=== PATIENT | male | born 1940 | race Caucasian/White ===

== ENCOUNTER 2017-04-27 17:01 | Inpatient (IN) | payer MEDICARE ==
[2017-04-27] MEDS ORDERED: Sodium Chloride 0.9% 1,000 ML IV STA (17:50)
--- NOTE | 2017-04-27 18:18 | ED PDOC ---
HPI: General Adult Time Seen by Provider: 04/27/17 17:36 Chief Complaint (Nursing): Weakness/Neurological Deficit Chief Complaint (Provider): Weakness History Per: Patient, Family () Onset/Duration Of Symptoms: Days, Other (months) Current Symptoms Are (Timing): Still Present Additional Complaint(s): 76 year old male with a past medical history of COPD (O2 at home) and HTN, who presents to the ED complaining of generalized weakness, decreased PO intake, and difficulty walking for several months. Patient's states patient is weak and hasn't been walking much. Also states patient's eating and drinking is severely reduced. Patient reports no pain, just weakness and lack of appetite. Denies chest pain, fevers, or shortness of breath. Confirms constipation. PMD: Dr. Orozco Past Medical History Reviewed: Historical Data, Nursing Documentation, Vital Signs Vital Signs: Last Vital Signs Temp 98 F 04/29/17 08:00 Pulse 80 04/29/17 08:00 Resp 18 04/29/17 08:00 BP 139/86 04/29/17 08:00 Pulse Ox 100 04/29/17 08:00 - Medical History PMH: CAD, Emphysema, HTN, Hypercholesterolemia Denies: Chronic Kidney Disease - Surgical History Surgical History: No Surg Hx - Family History Family History: States: Unknown Family Hx - Home Medications Home Medications: Ambulatory Orders Medication Instructions Recorded No Known Home Med 04/27/17 - Allergies Allergies/Adverse Reactions: Allergies Allergy/AdvReac Type Severity Reaction Status Date / Time No Known Allergies Allergy Verified 10/18/14 19:57 Review of Systems ROS Statement: Except As Marked, All Systems Reviewed And Found Negative Constitutional: Positive for: Weakness. Negative for: Fever Cardiovascular: Negative for: Chest Pain Respiratory: Negative for: Shortness of Breath Gastrointestinal: Positive for: Constipation Physical Exam - Reviewed Nursing Documentation Reviewed: Yes Vital Signs Reviewed: Yes - Physical Exam Appears: Positive for: Non-toxic, No Acute Distress (appears cachectic, frail) Head Exam: Positive for: ATRAUMATIC, NORMAL INSPECTION, NORMOCEPHALIC Skin: Positive for: Normal Color, Warm, Dry. Negative for: Rash Eye Exam: Positive for: EOMI, Normal appearance, PERRL Neck: Positive for: Normal, Painless ROM, Supple Cardiovascular/Chest: Positive for: Regular Rate, Rhythm. Negative for: Murmur Respiratory: Positive for: Normal Breath Sounds. Negative for: Respiratory Distress Gastrointestinal/Abdominal: Positive for: Normal Exam, Bowel Sounds, Soft. Negative for: Tenderness Back: Positive for: Normal Inspection. Negative for: L CVA Tenderness, R CVA Tenderness, Vertebral Tenderness Extremity: Positive for: Normal ROM. Negative for: Pedal Edema, Deformity Neurologic/Psych: Positive for: Alert, Oriented (x3). Negative for: Motor/ Sensory Deficits - Laboratory Results Result Diagrams: 04/27/17 18:58 04/29/17 05:24 - ECG O2 Sat by Pulse Oximetry: 99 (RA) Pulse Ox Interpretation: Normal - Radiology X-Ray: Interpreted by Me, Viewed By Me X-Ray Interpretation: COPD Medical Decision Making Medical Decision Making: Time: 17:49 Initial Impression: Generalized weakness and decreased PO intake. Differential diagnoses include, but are not limited to acute kidney failure, UTI, dementia, and generalized deconditioning. Initial Plan: --CT Head w/o contrast --EKG --Alcohol serum --Labs --Troponin I --CPK --ED Urine dipstick --CBC w/ differential --CXR --Sodium Chloride 0.9% 125 mls/hr --Reevaluation Time: 18:42 CT HEAD FINDINGS: HEMORRHAGE: No intracranial hemorrhage. BRAIN: Diffuse atrophy with prominence of the ventricles and sulci noted. No mass or edema. Mild scattered white matter hypodensities, which are nonspecific, but often seen with chronic microvascular ischemic disease. Please note that MRI with diffusion imaging is more sensitive in the detection of acute ischemic event. VENTRICLES: No hydrocephalus. CALVARIUM: Unremarkable. PARANASAL SINUSES: Unremarkable as visualized. No significant inflammatory changes. MASTOID AIR CELLS: Unremarkable as visualized. No inflammatory changes. OTHER FINDINGS: None. IMPRESSION: Generalized atrophy. Nonspecific white matter changes. Time: 19:00 Patient signed over to Dr. Rossi pending labs and urine. Scribe Attestation: Documented by Aman Martinez, acting as a scribe for Vicky Barajas MD. Provider Scribe Attestation: All medical record entries made by the Scribe were at my direction and personally dictated by me. I have reviewed the chart and agree that the record accurately reflects my personal performance of the history, physical exam, medical decision making, and the department course for this patient. I have also personally directed, reviewed, and agree with the discharge instructions and disposition. Disposition - Clinical Impression Clinical Impression: Dehydration, Cachexia - Patient ED Disposition Is Patient to be Admitted: Transfer of Care Counseled Patient/Family Regarding: Studies Performed, Diagnosis - Disposition Disposition: Transfer of Care Disposition Time: 19:00 Condition: FAIR Patient Signed Over To: Preet Rossi Handoff Comments: pending labs and urine
--- NOTE | 2017-04-27 18:43 | CT ---
PROCEDURE: CT HEAD WITHOUT CONTRAST. HISTORY: confusion weakness COMPARISON: None available. TECHNIQUE: Axial computed tomography images were obtained through the head/brain without intravenous contrast. Radiation dose: Total exam DLP = 1134.62 mGy-cm. This CT exam was performed using one or more of the following dose reduction techniques: Automated exposure control, adjustment of the mA and/or kV according to patient size, and/or use of iterative reconstruction technique. FINDINGS: HEMORRHAGE: No intracranial hemorrhage. BRAIN: Diffuse atrophy with prominence of the ventricles and sulci noted. No mass effect or edema. Mild scattered white matter hypodensities, which are nonspecific, but often seen with chronic microvascular ischemic disease. Please note that MRI with diffusion imaging is more sensitive in the detection of acute ischemic event. VENTRICLES: No hydrocephalus. CALVARIUM: Unremarkable. PARANASAL SINUSES: Unremarkable as visualized. No significant inflammatory changes. MASTOID AIR CELLS: Unremarkable as visualized. No inflammatory changes. OTHER FINDINGS: None. IMPRESSION: Generalized atrophy. Nonspecific white matter changes.
[2017-04-27 19:03] LABS: BASO # 0.1 K/uL (0.0-0.2); BASO % 0.9 % (0.0-2.0); EOS # 0.1 K/uL (0.0-0.7); HEMOGLOBIN 14.1 g/dL (12.0-18.0); LYMPH # 1.2 K/uL (1.0-4.3); LYMPH % 17.4 % (20.0-40.0); MEAN CELL VOLUME 97.1 fl (80.0-94.0); MEAN CORPUSCULAR HEMOGLOBIN 32.3 pg (27.0-31.0); MEAN CORPUSCULAR HGB CONC 33.2 g/dL (33.0-37.0); MEAN PLATELET VOLUME 7.7 fl (7.2-11.7); MONO # 0.5 K/uL (0.0-0.8); MONO % 6.8 % (0.0-10.0); NEUT # 4.8 K/uL (1.8-7.0); NEUT % 72.9 % (50.0-75.0); RBC 4.36 Mil/uL (4.40-5.90); RED CELL DISTRIBUTION WIDTH 14.8 % (11.5-14.5); WHITE BLOOD COUNT 6.6 K/uL (4.8-10.8)
--- NOTE | 2017-04-27 19:21 | ED PDOC ---
- Laboratory Results Result Diagrams: 04/27/17 18:58 04/27/17 18:58 - ECG O2 Sat by Pulse Oximetry: 99 (RA) Medical Decision Making Medical Decision Making: Time: 19:00 Patient signed over to me by pending urine and labs. Time: 20:00 Labs reviewed and no clinically significant abnormalities were found. Case discussed with Dr. Perez, resident air cargo ground operations supervisor, for hospitalization of patient due to cachexia and dehydration. Scribe Attestation: Documented by Aman Martinez, acting as a scribe for Preet Rossi MD. Provider Scribe Attestation: All medical record entries made by the Scribe were at my direction and personally dictated by me. I have reviewed the chart and agree that the record accurately reflects my personal performance of the history, physical exam, medical decision making, and the department course for this patient. I have also personally directed, reviewed, and agree with the discharge instructions and disposition. Disposition - Clinical Impression Clinical Impression: Dehydration, Cachexia - POA Present On Arrival: None - Disposition Disposition: Hospitalized as Observation Patient Disposition Time: 20:00 Condition: FAIR
[2017-04-27 19:22] LABS: ALB/GLOB RATIO 1.2 (1.0-2.1); ALT/SGPT 26 U/L (21-72); AST/SGOT 37 U/L (17-59); BLOOD UREA NITROGEN 20 mg/dl (9-20); CALCIUM 10.1 mg/dL (8.4-10.2); GFR AFRICAN-AMERICAN > 60; GFR NON-AFRICAN AMERICAN > 60
[2017-04-27] MEDS ORDERED: Sod Polystyrene Sulf 15 gm/60 ml Susp PO ONE (21:12)
[2017-04-27] MEDS ORDERED: Albuterol-Ipratrop 3 mg / 0.5 (3 ml) UD INH PRN (21:29)
--- NOTE | 2017-04-27 21:40 | CP.PCM.HP ---
<Renay Pace - Last Filed: 04/28/17 00:00> History of Present Illness - History of Present Illness History of Present Illness: 76 YO M w/ PMH of COPD on home oxygen, HTN, baseline dementia is brought in to the ER by his family for generalized weakness and decreased PO intake. Family states all he eats is scrambled eggs. He has lost a significant amount of weight in the past year. Patients daughter states the patient lost 60-70 pounds over the last year. - Patients family has noticed a decline in the patients memory and deconditioning of his overall health over the last year. He has two recent falls which were about a week ago, which were not witnessed, but he did not hit his head or loose consciousness. Patients gait has become more shuffled within the last year. - Patient has not gone to PMD , Dr. Orozco's clinic in 7 years and has not followed up with Manager Field Services Dr. Man in one year. - Denies Fever, chills, cough , hemoptysis, night sweats. PMH: HTN, HLD, COPD PSH: None SH: 80 Pack year smoking history. Smoked 2 packs per day for 40 years, however quit smoking in 2008. Patient lives with . Meds: No meds over last year. Pharmacy [facility]: 1 year ago patient was taking Elipta 62.5/25 and lisinopril 5mg, Ventolin inhaler Allergies: None Full Code Next of kin is Present on Admission - Present on Admission Any Indicators Present on Admission: No Review of Systems - Review of Systems All systems: reviewed and no additional remarkable complaints except Past Patient History - Past Social History Smoking Status: Former Smoker - CARDIAC Hx Hypercholesterolemia: Yes Hx Hypertension: Yes - PULMONARY Hx Emphysema: Yes - NEUROLOGICAL Hx Neurological Disorder: No - HEENT Hx HEENT Problems: No - RENAL Hx Chronic Kidney Disease: No - ENDOCRINE/METABOLIC Hx Endocrine Disorders: No - HEMATOLOGICAL/ONCOLOGICAL Hx Blood Disorders: No - INTEGUMENTARY Hx Dermatological Problems: No - MUSCULOSKELETAL/RHEUMATOLOGICAL Hx Musculoskeletal Disorders: No - GASTROINTESTINAL Hx Gastrointestinal Disorders: No - GENITOURINARY/GYNECOLOGICAL Hx Genitourinary Disorders: No - PSYCHIATRIC Hx Psychophysiologic Disorder: No Hx Substance Use: No - SURGICAL HISTORY Hx Surgeries: Yes - ANESTHESIA Hx Anesthesia: Yes Hx Anesthesia Reactions: No Meds Allergies/Adverse Reactions: Allergies Allergy/AdvReac Type Severity Reaction Status Date / Time No Known Allergies Allergy Verified 10/18/14 19:57 Physical Exam - Constitutional Appears: Cachectic - Head Exam Head Exam: NORMAL INSPECTION - Eye Exam Eye Exam: Normal appearance - ENT Exam ENT Exam: Mucous Membranes Dry - Neck Exam Neck exam: Positive for: Normal Inspection - Respiratory Exam Respiratory Exam: Decreased Breath Sounds, NORMAL BREATHING PATTERN. absent: Rhonchi, Wheezes - Cardiovascular Exam Cardiovascular Exam: REGULAR RHYTHM, +S1, +S2 - GI/Abdominal Exam GI & Abdominal Exam: Normal Bowel Sounds, Soft. absent: Tenderness - Extremities Exam Extremities exam: Positive for: normal inspection. Negative for: calf tenderness - Neurological Exam Neurological exam: Alert, CN II-XII Intact Additional comments: AAOx2 shuffling gait noted Motor and sensory grossly intact DTR: +2 B/L - Skin Skin Exam: Normal Color, Warm Results - Vital Signs Recent Vital Signs: Last Vital Signs Temp 97.6 F 04/27/17 17:04 Pulse 73 04/27/17 17:04 Resp 20 04/27/17 17:04 BP 157/81 H 04/27/17 17:04 Pulse Ox 99 04/27/17 20:12 - Labs Result Diagrams: 04/27/17 18:58 04/27/17 18:58 Labs: Laboratory Results - last 24 hr 04/27/17 04/27/17 18:58 18:58 WBC 6.6 RBC 4.36 L Hgb 14.1 Hct 42.3 MCV 97.1 H MCH 32.3 H MCHC 33.2 RDW 14.8 H Plt Count 322 MPV 7.7 Neut % (Auto) 72.9 Lymph % (Auto) 17.4 L [place] % (Auto) 6.8 Eos % (Auto) 2.0 Baso % (Auto) 0.9 Neut # (Auto) 4.8 Lymph # (Auto) 1.2 [place] # (Auto) 0.5 Eos # (Auto) 0.1 Baso # (Auto) 0.1 Sodium 143 Potassium 5.6 H Chloride 100 Carbon Dioxide 32 H Anion Gap 17 BUN 20 Creatinine 0.8 Est GFR ( Amer) > 60 Est GFR (Non-Af Amer) > 60 Random Glucose 102 Calcium 10.1 Total Bilirubin 0.7 AST 37 ALT 26 Alkaline Phosphatase 80 Total Creatine Kinase 48 L Troponin I 0.0130 Total Protein 7.3 Albumin 4.0 Globulin 3.3 Albumin/Globulin Ratio 1.2 Alcohol, Quantitative < 10 Assessment & Plan - Assessment and Plan (Free Text) Assessment: 76 YO M w/ h/o HTN, HLD, COPD admitted for deconditioning and dehydration 1) Dehydration - BUN: 20, Creatinine: .8. Dry mucus membrane - C/W IV fluids 2) Deconditioning - Swallow eval - BMI: 17.2 - PT/OT 3) COPD - C/W nasal canula - Duo neb Q6 PRN 4.) HTN - Hold meds for now 5) Baseline dementia most likely secondary to microvascular changes - F/U with Folate, B12, TSH - Consider MRI 6) H/O smoking - 80 Pack year smoking history - 70 pound unintentional weight loss. BMI of 17.2 - Consider chest CT 7) DVT prophylaxis - SCD for now <Fred Orozco - Last Filed: 04/29/17 07:05> Results - Vital Signs Recent Vital Signs: Last Vital Signs Temp 98.9 F 04/29/17 05:30 Pulse 68 04/29/17 05:30 Resp 16 04/29/17 05:30 BP 130/63 04/29/17 05:30 Pulse Ox 99 04/29/17 05:30 - Labs Result Diagrams: 04/27/17 18:58 04/29/17 05:24 Labs: Laboratory Results - last 24 hr 04/28/17 04/28/17 04/28/17 05:00 05:00 11:06 Sodium Potassium Chloride Carbon Dioxide Anion Gap BUN Creatinine Est GFR ( Amer) Est GFR (Non-Af Amer) Random Glucose Hemoglobin A1c 5.7 Calcium Prostate Specific Ag 2.79 Folate 14.5 04/29/17 05:24 Sodium 141 Potassium 4.3 Chloride 99 Carbon Dioxide 35 H Anion Gap 11 BUN 16 Creatinine 0.9 Est GFR ( Amer) > 60 Est GFR (Non-Af Amer) > 60 Random Glucose 84 Hemoglobin A1c Calcium 9.2 Prostate Specific Ag Folate Attending/Attestation - Attestation I have personally seen and examined this patient.: Yes I have fully participated in the care of the patient.: Yes I have reviewed all pertinent clinical information: Yes
[2017-04-27] MEDS ORDERED: Sod Polystyrene Sulf 15 gm/60 ml Susp ONE (23:27)
[2017-04-28] MEDS ORDERED: Sodium Chloride 0.9% 1,000 ML IV SCH (02:30)
[2017-04-28 06:13] LABS: LDL CHOLESTEROL 70 mg/dL (0-129)
[2017-04-28 06:17] LABS: T4 6.75 ug/dl (5.5-11.0)
[2017-04-28 06:31] LABS: T3 0.878 nmol/L (1.49-2.60)
[2017-04-28 06:34] LABS: ALB/GLOB RATIO 1.2 (1.0-2.1); ALBUMIN 3.2 g/dL (3.5-5.0); ALT/SGPT 27 U/L (21-72); AST/SGOT 22 U/L (17-59); BLOOD UREA NITROGEN 16 mg/dl (9-20); CALCIUM 8.9 mg/dL (8.4-10.2); GFR AFRICAN-AMERICAN > 60; GFR NON-AFRICAN AMERICAN > 60; HDL CHOLESTEROL 46 MG/DL (30-70)
--- NOTE | 2017-04-28 09:19 | CP.PCM.PN ---
<Josie Galindo - Last Filed: 04/28/17 15:51> Subjective - Date & Time of Evaluation Date of Evaluation: 04/28/17 Time of Evaluation: 07:25 - Subjective Subjective: Pt seen and evaluated at bedside this morning. States he feels well but that he does not know why he is here. Objective - Vital Signs/Intake and Output Vital Signs (last 24 hours): Temp Pulse Resp BP Pulse Ox 97.5 F L 60 18 128/66 99 04/28/17 08:00 04/28/17 08:00 04/28/17 08:00 04/28/17 08:00 04/28/17 08:00 - Medications Medications: Current Medications Albuterol/Ipratropium (Duoneb 3 Mg/0.5 Mg (3 Ml) Ud) 3 ml INH RQ6 PRN PRN Reason: Shortness of Breath Heparin Sodium (Porcine) (Heparin) 5,000 units SC Q12 NORBERTO PRN Reason: Protocol Sodium Chloride (Sodium Chloride 0.9%) 1,000 mls @ 100 mls/hr IV .Q10H NORBERTO Stop: 04/29/17 02:22 Last Admin: 04/28/17 02:36 Dose: 100 mls/hr - Labs Labs: 04/27/17 18:58 04/28/17 05:00 - Constitutional Appears: Non-toxic, Cachectic - Head Exam Head Exam: ATRAUMATIC - Eye Exam Eye Exam: Normal appearance - Respiratory Exam Respiratory Exam: Clear to Ausculation Bilateral, NORMAL BREATHING PATTERN. absent: Chest Wall Tenderness, Rales, Wheezes, Respiratory Distress - Cardiovascular Exam Cardiovascular Exam: REGULAR RHYTHM, +S1, +S2 - GI/Abdominal Exam GI & Abdominal Exam: Soft, Normal Bowel Sounds. absent: Tenderness - Back Exam Back Exam: NORMAL INSPECTION - Neurological Exam Neurological Exam: Alert, Awake - Skin Skin Exam: Normal Color, Warm Assessment and Plan - Assessment and Plan (Free Text) Assessment: 76 yo male with PMHx HTN, HLD, COPD who is admitted for deconditioning and dehydration, reported significant weight loss. Plan: #) Dehydration - On admission, BUN 20, Cr 0.8 - Received 1L fluid in ED - Today BUN 16, Cr 0.8 - 1L NS @ 100 mls/hr until diet order as per swallow eval recommendation #) Deconditioning - Swallow eval today - modified dysphagia diet: finely chopped and thin liquids - PT eval: recommended TCU for 2 weeks, therapy 3-5x a week. #) Underweight - BMI 17.2 - Repair Operator consult - Significant weight loss 60-70 lbs in past year - PSA pending #) History of smoking - 80 pack year smoking hx - Significant weight loss 60-70 lbs in past year - Low dose Chest CT - Pulmonology consult Dr. Man #) Baseline dementia, most likely secondary to miscovascular changes - Folate pending - B12 395, wnl - TSH 0.65, wnl - Psychiatry consult, Dr. Ritter - Social work referral #) COPD - Duoneb Q6 hrs PRN #) History of HTN - Normotensive without medications - Monitor BP #) DVT prophylaxis - Heparin 5000u SC Q12 <Dwaine Davis - Last Filed: 05/02/17 06:59> Objective - Vital Signs/Intake and Output Vital Signs (last 24 hours): Temp Pulse Resp BP Pulse Ox 98.9 F 54 L 16 142/65 95 05/02/17 06:09 05/02/17 06:09 05/02/17 06:09 05/02/17 06:09 05/02/17 06:09 - Medications Medications: Current Medications Albuterol Sulfate (Albuterol 0.083% Inhal Susanna (2.5 Mg/3 Ml) Ud) 2.5 mg INH RQ6 PRN PRN Reason: Shortness of Breath Docusate Sodium (Colace) 100 mg PO BID [facility] Last Admin: 05/01/17 18:20 Dose: 100 mg Heparin Sodium (Porcine) (Heparin) 5,000 units SC Q12 NORBERTO PRN Reason: Protocol Last Admin: 05/01/17 22:11 Dose: 5,000 units Prednisone (Prednisone Tab) 20 mg PO DAILY [facility] Last Admin: 05/01/17 13:29 Dose: 20 mg Tiotropium [place] (Spiriva) 18 mcg INH DAILY [facility] Last Admin: 05/01/17 09:09 Dose: 18 mcg - Labs Labs: 04/27/17 18:58 04/29/17 05:24 Attending/Attestation - Attestation I have personally seen and examined this patient.: Yes I have fully participated in the care of the patient.: Yes I have reviewed all pertinent clinical information, including history, physical exam and plan: Yes
--- NOTE | 2017-04-28 10:18 | RAD ---
PROCEDURE: CHEST RADIOGRAPH, 1 VIEW HISTORY: weakness COMPARISON: 10/10/2008 FINDINGS: LUNGS: Pulmonary hyperinflation with flattened diaphragm. Questionable opacity in left apex no abnormal opacity elsewhere. . PLEURA: Minimal blunting of both costophrenic angles may reflect small pleural effusions or chronic pleural thickening. No pneumothorax. CARDIOVASCULAR: Normal. OSSEOUS STRUCTURES: No significant abnormalities. VISUALIZED UPPER ABDOMEN: Normal. OTHER FINDINGS: None. IMPRESSION: Pulmonary hyperinflation. Possible emphysema. Questionable opacity in left apex. Follow-up advised to exclude pneumonia. Possible small bilateral pleural effusion versus chronic pleural thickening.
--- NOTE | 2017-04-28 10:58 | CP.PCM.CON ---
History of Present Illness - History of Present Illness History of Present Illness: Psychiatry consult CC: "I don't know why I'm here." HPI: 76 YO M w/ PMH of COPD on home oxygen, HTN, baseline dementia is brought in to the ER by his family for generalized weakness and decreased PO intake. He has lost a significant amount of weight in the past year. Patients daughter states the patient lost 60-70 pounds over the last year. Patient is unable to state why is in the hospital. Patient and family deny depression/anxiety/AH/VH/ paranoia/delusions. The report patient has had worsening memory, but is calm at home and does not have any behavioral disturances. They do not believe he needs psychiatric admission. PMH: HTN, HLD, COPD PSH: None SH: 80 Pack year smoking history. Smoked 2 packs per day for 40 years, however quit smoking in 2008. Patient lives with . Meds: No meds over last year. Pharmacy [facility]: 1 year ago patient was taking Elipta 62.5/25 and lisinopril 5mg, Ventolin inhaler Allergies: None MSE: A + O x 3 (able to read date off of board), calm, cooperative, full range of affect, tells jokes, thought process- coherent, no AH/VH/SI/HI, poor insight/ judgment due to cognitive impairment. Impression: 76 yo male w/ worsening dementia. Recommendation: -No acute inpatient psychiatric admission indicated at this time -Recommend Psychology consult for neurocognitive evaluation to determine severity of dementia -Patient may benefit from starting Aricept and/or Namenda and would benefit from outpatient medical follow-up -No 1:1 indicated for psychiatric reasons -Dietitian referral for significant weight loss Past Patient History - Past Medical History & Family History Past Medical History?: Yes - Past Social History Smoking Status: Former Smoker - CARDIAC Hx Cardiac Disorders: Yes Hx Hypercholesterolemia: Yes Hx Hypertension: Yes - PULMONARY Hx Respiratory Disorders: Yes Hx Chronic Obstructive Pulmonary Disease (COPD): Yes Hx Emphysema: Yes - NEUROLOGICAL Hx Neurological Disorder: Yes Hx Dementia: Yes - HEENT Hx HEENT Problems: No - RENAL Hx Chronic Kidney Disease: No - ENDOCRINE/METABOLIC Hx Endocrine Disorders: No - HEMATOLOGICAL/ONCOLOGICAL Hx Blood Disorders: No Hx AIDS: No Hx Human Immunodeficiency Virus (HIV): No - INTEGUMENTARY Hx Dermatological Problems: No - MUSCULOSKELETAL/RHEUMATOLOGICAL Hx Musculoskeletal Disorders: No Hx Falls: Yes (recurrent falls) - GASTROINTESTINAL Hx Gastrointestinal Disorders: No - GENITOURINARY/GYNECOLOGICAL Hx Genitourinary Disorders: No - PSYCHIATRIC Hx Psychophysiologic Disorder: No Hx Substance Use: No - SURGICAL HISTORY Hx Surgeries: Yes - ANESTHESIA Hx Anesthesia: Yes Hx Anesthesia Reactions: No Meds Allergies/Adverse Reactions: Allergies Allergy/AdvReac Type Severity Reaction Status Date / Time No Known Allergies Allergy Verified 10/18/14 19:57 - Medications Medications: Current Medications Albuterol/Ipratropium (Duoneb 3 Mg/0.5 Mg (3 Ml) Ud) 3 ml INH RQ6 PRN PRN Reason: Shortness of Breath Heparin Sodium (Porcine) (Heparin) 5,000 units SC Q12 NORBERTO PRN Reason: Protocol Last Admin: 04/28/17 09:32 Dose: 5,000 units Sodium Chloride (Sodium Chloride 0.9%) 1,000 mls @ 100 mls/hr IV .Q10H NORBERTO Stop: 04/29/17 02:22 Last Admin: 04/28/17 02:36 Dose: 100 mls/hr Results - Vital Signs Recent Vital Signs: Last Vital Signs Temp 97.5 F L 04/28/17 08:00 Pulse 60 04/28/17 08:00 Resp 18 04/28/17 08:00 BP 128/66 04/28/17 08:00 Pulse Ox 99 04/28/17 08:00 - Labs Result Diagrams: 04/27/17 18:58 04/28/17 05:00 Labs: Laboratory Results - last 24 hr 04/27/17 04/27/17 04/27/17 05:00 18:58 18:58 WBC 6.6 RBC 4.36 L Hgb 14.1 Hct 42.3 MCV 97.1 H MCH 32.3 H MCHC 33.2 RDW 14.8 H Plt Count 322 MPV 7.7 Neut % (Auto) 72.9 Lymph % (Auto) 17.4 L [place] % (Auto) 6.8 Eos % (Auto) 2.0 Baso % (Auto) 0.9 Neut # (Auto) 4.8 Lymph # (Auto) 1.2 [place] # (Auto) 0.5 Eos # (Auto) 0.1 Baso # (Auto) 0.1 Sodium 143 Potassium 5.6 H Chloride 100 Carbon Dioxide 32 H Anion Gap 17 BUN 20 Creatinine 0.8 Est GFR ( Amer) > 60 Est GFR (Non-Af Amer) > 60 Random Glucose 102 Calcium 10.1 Total Bilirubin 0.7 AST 37 ALT 26 Alkaline Phosphatase 80 Total Creatine Kinase 48 L Troponin I 0.0130 Total Protein 7.3 Albumin 4.0 Globulin 3.3 Albumin/Globulin Ratio 1.2 Triglycerides Cholesterol LDL Cholesterol Direct HDL Cholesterol Vitamin B12 395 Thyroxine (T4) Total T3 TSH 3rd Generation Alcohol, Quantitative < 10 04/28/17 05:00 WBC RBC Hgb Hct MCV MCH MCHC RDW Plt Count MPV Neut % (Auto) Lymph % (Auto) [place] % (Auto) Eos % (Auto) Baso % (Auto) Neut # (Auto) Lymph # (Auto) [place] # (Auto) Eos # (Auto) Baso # (Auto) Sodium 145 Potassium 3.9 Chloride 104 Carbon Dioxide 29 Anion Gap 16 BUN 16 Creatinine 0.8 Est GFR ( Amer) > 60 Est GFR (Non-Af Amer) > 60 Random Glucose 86 Calcium 8.9 Total Bilirubin 0.4 AST 22 ALT 27 Alkaline Phosphatase 57 Total Creatine Kinase Troponin I Total Protein 5.9 L Albumin 3.2 L Globulin 2.7 Albumin/Globulin Ratio 1.2 Triglycerides 49 Cholesterol 131 LDL Cholesterol Direct 70 HDL Cholesterol 46 Vitamin B12 Thyroxine (T4) 6.75 Total T3 0.878 L TSH 3rd Generation 0.65 Alcohol, Quantitative
[2017-04-28 12:03] LABS: FOLATE 14.5 ng/mL
--- NOTE | 2017-04-28 14:45 | CT ---
PROCEDURE: CT Chest without contrast HISTORY: weight loss, smoking hx COMPARISON: None. TECHNIQUE: Contiguous axial images were obtained through the chest without intravenous contrast enhancement. Sagittal and coronal reconstructions were performed. Radiation dose (DLP): 241.45 mGy-cm. This CT exam was performed using one or more of the following dose reduction techniques: Automated exposure control, adjustment of the mA and/or kV according to patient size, and/or use of iterative reconstruction technique. FINDINGS: LUNGS: Extensive diffuse centrilobular pulmonary emphysema. No infiltrate. No pulmonary mass. No bullous change. Marked pulmonary hyperinflation. MEDIASTINUM: Unremarkable thoracic aorta. No aneurysm. Normal sized heart. Main pulmonary artery unremarkable. No vascular congestion. No lymphadenopathy. PLEURA: No pleural fluid. No pneumothorax. BONES: No fracture. No destructive lesion. UPPER ABDOMEN: Grossly unremarkable. OTHER FINDINGS: None. IMPRESSION: Extensive centrilobular pulmonary emphysema. No evidence of pulmonary neoplasm. Otherwise unremarkable examination.
[2017-04-29 06:42] LABS: BLOOD UREA NITROGEN 16 mg/dl (9-20); CALCIUM 9.2 mg/dL (8.4-10.2); GFR AFRICAN-AMERICAN > 60; GFR NON-AFRICAN AMERICAN > 60
--- NOTE | 2017-04-29 10:05 | CP.PCM.CON ---
History of Present Illness - History of Present Illness History of Present Illness: This 76-year-old male who is a former heavy cigarette smoker presented to the emergency department with generalized weakness and reduced oral intake. He is known to suffer from chronic obstructive pulmonary disease and had been followed as an outpatient, but had not returned to the office for over the last year. As per the medical record there is a noticeable decline in his mental ability and he remains essentially within the home and in bed. He has had some recent falls while in the home. He is on oxygen at home because of chronic hypoxemia. Review of his CT scan at this time shows severely advanced emphysematous configuration of the chest with diffuse bullous emphysematous changes. Low dose, screening CT thorax was performed on 06/22/16 and showed extensive centrilobular emphysema in both lungs with increased reticular markings in the lung bases more so left than right. No suspicious pulmonary nodules or mass was seen. Past Patient History - Past Medical History & Family History Past Medical History?: Yes - Past Social History Smoking Status: Former Smoker (1.5 packs per day for greater than 50 years.) Chewing Tobacco Use: No Cigar Use: No Alcohol: Social Drugs: Denies Home Situation {Lives}: With Family - CARDIAC Hx Heart Attack: Yes (1999) Hx Hypercholesterolemia: Yes Hx Hypertension: Yes - PULMONARY Hx Chronic Obstructive Pulmonary Disease (COPD): Yes Hx Emphysema: Yes - NEUROLOGICAL Hx Dementia: Yes - HEENT Hx HEENT Problems: No - RENAL Hx Chronic Kidney Disease: No - ENDOCRINE/METABOLIC Hx Endocrine Disorders: No - HEMATOLOGICAL/ONCOLOGICAL Hx Blood Disorders: No Hx Human Immunodeficiency Virus (HIV): No - INTEGUMENTARY Hx Dermatological Problems: No - MUSCULOSKELETAL/RHEUMATOLOGICAL Hx Falls: Yes (recurrent falls) - GASTROINTESTINAL Hx Gastrointestinal Disorders: No - GENITOURINARY/GYNECOLOGICAL Hx Prostate Problems: Yes - PSYCHIATRIC Hx Psychophysiologic Disorder: No Hx Substance Use: No - SURGICAL HISTORY Hx Surgeries: Yes Hx Cardiac Catheterization: Yes Hx Coronary Stent: Yes - ANESTHESIA Hx Anesthesia: Yes Hx Anesthesia Reactions: No Meds Allergies/Adverse Reactions: Allergies Allergy/AdvReac Type Severity Reaction Status Date / Time No Known Allergies Allergy Verified 10/18/14 19:57 - Medications Medications: Current Medications Albuterol/Ipratropium (Duoneb 3 Mg/0.5 Mg (3 Ml) Ud) 3 ml INH RQ6 PRN PRN Reason: Shortness of Breath Heparin Sodium (Porcine) (Heparin) 5,000 units SC Q12 NORBERTO PRN Reason: Protocol Last Admin: 04/29/17 09:09 Dose: 5,000 units Physical Exam - Additional Findings Additional findings: Very thin, almost cachectic appearance. The patient is quietly lying in bed on his side and asleep, but is easily awakened. His speech is at a very low volume and his answers are somewhat vague. The neck is supple and trachea is midline. There is no palpable cervical or axillary adenopathy. The chest is hyperresonant to percussion bilaterally. The breath sounds are markedly diminished bilaterally without any audible wheezing. Occasional sonorous rhonchi heard in dependent regions of both lungs. No bronchial breath sounds or egophony noted. Heart sounds are very distant and the rhythm appears regular. There is no dependent edema of the lower extremities. No clubbing or cyanosis. Results - Vital Signs Recent Vital Signs: Last Vital Signs Temp 98 F 04/29/17 08:00 Pulse 80 04/29/17 08:00 Resp 18 04/29/17 08:00 BP 139/86 04/29/17 08:00 Pulse Ox 99 04/29/17 09:45 - Labs Result Diagrams: 04/27/17 18:58 04/29/17 05:24 Labs: Laboratory Results - last 24 hr 04/28/17 04/28/17 04/28/17 05:00 05:00 11:06 Sodium Potassium Chloride Carbon Dioxide Anion Gap BUN Creatinine Est GFR ( Amer) Est GFR (Non-Af Amer) Random Glucose Hemoglobin A1c 5.7 Calcium Prostate Specific Ag 2.79 Folate 14.5 04/29/17 05:24 Sodium 141 Potassium 4.3 Chloride 99 Carbon Dioxide 35 H Anion Gap 11 BUN 16 Creatinine 0.9 Est GFR ( Amer) > 60 Est GFR (Non-Af Amer) > 60 Random Glucose 84 Hemoglobin A1c Calcium 9.2 Prostate Specific Ag Folate Assessment & Plan (1) Stage 4 very severe COPD by GOLD classification Status: Chronic Priority: High Comment: Severe, advanced pulmonary emphysema with hypoxemia. Continue inhalation therapy using albuterol/ipratropium [id number]. Continued oxygen supplementation via nasal cannula. Nutritional support. Low-dose corticosteroids may add some improvement in his appetite. - Date & Time Date: 04/29/17 Time: 10:04
--- NOTE | 2017-04-29 10:41 | CP.PCM.PN ---
Subjective - Date & Time of Evaluation Date of Evaluation: 04/29/17 Time of Evaluation: 07:20 - Subjective Subjective: Pt seen and evaluated at bedside this am; he was gently awakened from sleep but appeared to be confused as to where he was. Pt was seen later in the afternoon as well, around 4:30 pm. Was more alert, awake, talkative. Objective - Vital Signs/Intake and Output Vital Signs (last 24 hours): Temp Pulse Resp BP Pulse Ox 98 F 80 18 139/86 99 04/29/17 08:00 04/29/17 08:00 04/29/17 08:00 04/29/17 08:00 04/29/17 09:45 - Medications Medications: Current Medications Albuterol/Ipratropium (Duoneb 3 Mg/0.5 Mg (3 Ml) Ud) 3 ml INH RQ6 PRN PRN Reason: Shortness of Breath Heparin Sodium (Porcine) (Heparin) 5,000 units SC Q12 [facility] PRN Reason: Protocol Last Admin: 04/29/17 09:09 Dose: 5,000 units - Labs Labs: 04/27/17 18:58 04/29/17 05:24 - Constitutional Appears: No Acute Distress, Cachectic, Chronically Ill - Head Exam Head Exam: NORMAL INSPECTION - Eye Exam Eye Exam: Normal appearance - ENT Exam ENT Exam: Mucous Membranes Moist - Respiratory Exam Respiratory Exam: Decreased Breath Sounds, NORMAL BREATHING PATTERN Additional comments: scattered wheezes bilaterally - Cardiovascular Exam Cardiovascular Exam: REGULAR RHYTHM, +S1, +S2 - GI/Abdominal Exam GI & Abdominal Exam: Soft, Normal Bowel Sounds - Extremities Exam Extremities Exam: absent: Calf Tenderness, Pedal Edema - Neurological Exam Additional comments: awakened, but appeared confused - Skin Skin Exam: Dry, Normal Color, Warm Assessment and Plan - Assessment and Plan (Free Text) Assessment: 76 yo male with PMHx HTN, HLD, COPD who is admitted for deconditioning and dehydration, reported significant weight loss. Has worsening dementia. Plan: #) Baseline dementia, most likely secondary to miscovascular changes - Folate 14.5, wnl - B12 395, wnl - TSH 0.65, wnl - RPR pending - Psychiatry consult, Dr. Ritter - pt does not need inpt psych, no 1:1, recommended psychology eval for dementia - Psychology eval: Pt scored in the Deficient Range on all tasks. Pt's attention , construction, memory, initiation and conceptualization skills all fell in the deficient range. Significant cognitive deficits were evident on evaluation. - Social work referral - Spoke to social worker palliative care Chelsea. Pt's is not agreeable for him to go to subacute rehab, states she wants to take him home when he is medically stable. States she will consider home health aide help. Will continue to follow with social work. #) Dehydration, improving - On admission, BUN 20, Cr 0.8 - Received 1L fluid in ED - Today BUN 16, Cr 0.9 #) Deconditioning - Swallow eval- modified dysphagia diet: finely chopped and thin liquids - PT eval: recommended TCU for 2 weeks, therapy 3-5x a week, but as per social salty Tran pt does not qualify and would have to go to outpatient subacute rehab; family not agreeable to rehab. #) COPD - Duoneb Q6 hrs PRN - Pulmonology consult, Dr. Man #) History of smoking - 80 pack year smoking hx - Reported significant weight loss 60-70 lbs in past year - Low dose Chest CT - Extensive diffuse centrilobular pulmonary emphysema. No infiltrate. No pulmonary mass. No bullous change. Marked pulmonary hyperinflation. No evidence of pulmonary neoplasm. - Pulmonology consult Dr. Man; pending #) Underweight - BMI 13.6 - Parts Puller consult - Significant weight loss 60-70 lbs in past year - PSA 2.79 - Fecal occult blood pending #) History of HTN - Normotensive without medications - Monitor BP #) DVT prophylaxis - Heparin 5000u SC Q12
--- NOTE | 2017-04-29 11:25 | CP.PCM.CON ---
History of Present Illness - History of Present Illness History of Present Illness: Pt is a 76 year old male admitted to [facility] and referred to the verse writer for evaluation. Pt unable to provide medical history, See medical record for complete medical history and medications. His reported that he had not seen a doctor for over one year. Social History: pt unable to report who he resided with apart form his . he did not disclose/recall that his son also resided in the home. Pt unable to state years , unable to name all children and where they reside. He was also unable to recall the ages of his oldest and youngest child. Pt 's reported that they were for 60+ years with 10 children. Pt is negative for a psych history. He denied a history of alcohol/substance abuse. Recall for fpc data was impaired as well. Pt unable to state where he was raised. he spoke of attending the 11th grade and working as a [employer]. Pt's reported observing cognitive decline over the last five years and increased irritablity when confronted with challenges/cogntiive tasks (cards). On the DRS, pt scored an overall score of 95. Pt scored in the Deficient Range on all tasks. pt's Attention, Construction, Memory, Initiation and Conceptualization skills all fell in the deficient range. Overall 95 Significant cognitive deficits were evident on evaluation consistent with her test results. Thank you for the referral, Dr.. Mojica Past Patient History - Past Medical History & Family History Past Medical History?: Yes - Past Social History Smoking Status: Former Smoker - CARDIAC Hx Hypercholesterolemia: Yes Hx Hypertension: Yes - PULMONARY Hx Emphysema: Yes - NEUROLOGICAL Hx Neurological Disorder: Yes Hx Dementia: Yes - HEENT Hx HEENT Problems: No - RENAL Hx Chronic Kidney Disease: No - ENDOCRINE/METABOLIC Hx Endocrine Disorders: No - HEMATOLOGICAL/ONCOLOGICAL Hx Blood Disorders: No Hx AIDS: No Hx Human Immunodeficiency Virus (HIV): No - INTEGUMENTARY Hx Dermatological Problems: No - MUSCULOSKELETAL/RHEUMATOLOGICAL Hx Musculoskeletal Disorders: No Hx Falls: Yes (recurrent falls) - GASTROINTESTINAL Hx Gastrointestinal Disorders: No - GENITOURINARY/GYNECOLOGICAL Hx Genitourinary Disorders: No - PSYCHIATRIC Hx Psychophysiologic Disorder: No Hx Substance Use: No - SURGICAL HISTORY Hx Surgeries: Yes - ANESTHESIA Hx Anesthesia: Yes Hx Anesthesia Reactions: No Meds Allergies/Adverse Reactions: Allergies Allergy/AdvReac Type Severity Reaction Status Date / Time No Known Allergies Allergy Verified 10/18/14 19:57 - Medications Medications: Current Medications Albuterol/Ipratropium (Duoneb 3 Mg/0.5 Mg (3 Ml) Ud) 3 ml INH RQ6 PRN PRN Reason: Shortness of Breath Heparin Sodium (Porcine) (Heparin) 5,000 units SC Q12 NORBERTO PRN Reason: Protocol Last Admin: 04/29/17 09:09 Dose: 5,000 units Results - Vital Signs Recent Vital Signs: Last Vital Signs Temp 98 F 04/29/17 08:00 Pulse 80 04/29/17 08:00 Resp 18 04/29/17 08:00 BP 139/86 04/29/17 08:00 Pulse Ox 99 04/29/17 09:45 - Labs Result Diagrams: 04/27/17 18:58 04/29/17 05:24 Labs: Laboratory Results - last 24 hr 04/28/17 04/28/17 04/29/17 05:00 11:06 05:24 Sodium 141 Potassium 4.3 Chloride 99 Carbon Dioxide 35 H Anion Gap 11 BUN 16 Creatinine 0.9 Est GFR ( Amer) > 60 Est GFR (Non-Af Amer) > 60 Random Glucose 84 Calcium 9.2 Prostate Specific Ag 2.79 Folate 14.5
--- NOTE | 2017-04-29 18:12 | CARD ---
APPROVED REPORT EKG Measurement Heart [id number] <Conclusion> Sinus bradycardia with premature atrial complexes Possible Inferior infarct, age undetermined Abnormal ECG
--- NOTE | 2017-04-29 18:14 | CARD ---
APPROVED REPORT EKG Measurement Heart [id number] <Conclusion> Sinus rhythm with premature supraventricular complexes Inferior infarct, age undetermined Abnormal ECG
--- NOTE | 2017-04-30 08:51 | CP.PCM.PN ---
Subjective - Date & Time of Evaluation Date of Evaluation: 04/30/17 Time of Evaluation: 07:45 - Subjective Subjective: Patient seen and examined with attending at bedside. 76M resting comfortably in bed with oxygen in place. He denies SOB, chest pain/ palpitations. He was happy to hear he may be going home soon. Objective - Vital Signs/Intake and Output Vital Signs (last 24 hours): Temp Pulse Resp BP Pulse Ox 36.7 C 88 18 115/60 93 L 04/30/17 08:20 04/30/17 08:20 04/30/17 08:20 04/30/17 08:20 04/30/17 08:20 - Medications Medications: Current Medications Albuterol/Ipratropium (Duoneb 3 Mg/0.5 Mg (3 Ml) Ud) 3 ml INH RQ6 PRN PRN Reason: Shortness of Breath Heparin Sodium (Porcine) (Heparin) 5,000 units SC Q12 NORBERTO PRN Reason: Protocol Last Admin: 04/29/17 21:21 Dose: 5,000 units - Labs Labs: 04/27/17 18:58 04/29/17 05:24 - Constitutional Appears: Well - Head Exam Head Exam: ATRAUMATIC, NORMAL INSPECTION - ENT Exam ENT Exam: Mucous Membranes Moist - Respiratory Exam Respiratory Exam: NORMAL BREATHING PATTERN - Cardiovascular Exam Cardiovascular Exam: REGULAR RHYTHM, +S1, +S2 - GI/Abdominal Exam GI & Abdominal Exam: Soft, Normal Bowel Sounds - Extremities Exam Extremities Exam: Full ROM, Normal Capillary Refill - Neurological Exam Neurological Exam: Alert, Awake - Psychiatric Exam Psychiatric exam: Normal Affect, Normal Mood - Skin Skin Exam: Dry, Warm Assessment and Plan - Assessment and Plan (Free Text) Assessment: 76M PMH of COPD, reports of unclear weight loss etiology stable on home oxygen. Plan: COPD: Oxygen via nasal cannula, Spiriva, Albuterol, f/u recs from Pulmonology Consult Deconditioning/Underweight: B12/Folate/TSH/PSA are WNL and no evidence of anemia and CT negative for neoplasm. HTN: monitor, no meds DVT prophyalxis: SC Heparin
--- NOTE | 2017-04-30 12:28 | CP.PCM.PN ---
Subjective - Date & Time of Evaluation Date of Evaluation: 04/30/17 Time of Evaluation: 12:28 - Subjective Subjective: Appears more awake and comfortable today. Conversing with visitor clearly. Claims he is breathing 'okay'. Denies any chest discomfort. Breath sounds remain very diminished. No audible wheeze or bronchial breath sounds. No dependant edema, no cyanosis, extrems are warm to touch. Continue current drug/aerosol regimen. Patient appears to be at baseline. Objective - Vital Signs/Intake and Output Vital Signs (last 24 hours): Temp Pulse Resp BP Pulse Ox 98.1 F 88 18 115/60 93 L 04/30/17 08:20 04/30/17 08:20 04/30/17 08:20 04/30/17 08:20 04/30/17 08:20 - Medications Medications: Current Medications Albuterol/Ipratropium (Duoneb 3 Mg/0.5 Mg (3 Ml) Ud) 3 ml INH RQ6 PRN PRN Reason: Shortness of Breath Heparin Sodium (Porcine) (Heparin) 5,000 units SC Q12 NORBERTO PRN Reason: Protocol Last Admin: 04/30/17 08:57 Dose: 5,000 units - Labs Labs: 04/27/17 18:58 04/29/17 05:24 Assessment and Plan (1) Stage 4 very severe COPD by GOLD classification Status: Chronic
[2017-04-30] MEDS ORDERED: Albuterol 0.083% Inhal Sol (2.5 mg/3 mL) UD INH PRN (22:49)
[2017-05-01] MEDS: Tiotropium 18 mcg Cap For Inhalation INH SCH (09:09)
--- NOTE | 2017-05-01 16:18 | CP.PCM.PN ---
Subjective - Date & Time of Evaluation Date of Evaluation: 05/01/17 Time of Evaluation: 14:00 - Subjective Subjective: 76 yo M, seen and evaluated at bedside this am, and again at 2 pm. Pt reports no acute events overnight, appears in good spirits. Wearing NC @ 2L. Objective - Vital Signs/Intake and Output Vital Signs (last 24 hours): Temp Pulse Resp BP Pulse Ox 97.0 F L 69 20 138/61 96 05/01/17 12:10 05/01/17 12:10 05/01/17 12:10 05/01/17 12:10 05/01/17 12:10 - Medications Medications: Current Medications Albuterol Sulfate (Albuterol 0.083% Inhal Susanna (2.5 Mg/3 Ml) Ud) 2.5 mg INH RQ6 PRN PRN Reason: Shortness of Breath Docusate Sodium (Colace) 100 mg PO BID [facility] Last Admin: 05/01/17 09:09 Dose: 100 mg Heparin Sodium (Porcine) (Heparin) 5,000 units SC Q12 [facility] PRN Reason: Protocol Last Admin: 05/01/17 09:09 Dose: 5,000 units Prednisone (Prednisone Tab) 20 mg PO DAILY [facility] Last Admin: 05/01/17 13:29 Dose: 20 mg Tiotropium [place] (Spiriva) 18 mcg INH DAILY [facility] Last Admin: 05/01/17 09:09 Dose: 18 mcg - Labs Labs: 04/27/17 18:58 04/29/17 05:24 - Constitutional Appears: Non-toxic, No Acute Distress, Cachectic - Head Exam Head Exam: NORMAL INSPECTION - Eye Exam Eye Exam: Normal appearance - ENT Exam ENT Exam: Mucous Membranes Moist - Respiratory Exam Respiratory Exam: Wheezes, NORMAL BREATHING PATTERN Additional comments: scattered wheezes but good air movement bilaterally - Cardiovascular Exam Cardiovascular Exam: REGULAR RHYTHM, +S1, +S2 - GI/Abdominal Exam GI & Abdominal Exam: Soft, Normal Bowel Sounds - Extremities Exam Extremities Exam: Normal Inspection. absent: Calf Tenderness, Pedal Edema - Back Exam Back Exam: NORMAL INSPECTION - Neurological Exam Neurological Exam: Alert, Awake - Psychiatric Exam Psychiatric exam: Normal Affect, Normal Mood - Skin Skin Exam: Dry, Normal Color, Warm Assessment and Plan - Assessment and Plan (Free Text) Assessment: 76 yo M with PMH COPD, dementia, admitted due to dehydration, deconditioning. Doing better today. Plan: #) Baseline dementia, most likely secondary to miscovascular changes - Folate 14.5, wnl - B12 395, wnl - TSH 0.65, wnl - RPR NR - Psychiatry consult, Dr. Ritter - pt does not need inpt psych, no 1:1, recommended psychology eval for dementia. - Psychology eval: Pt scored in the Deficient Range on all tasks. Pt's attention , construction, memory, initiation and conceptualization skills all fell in the deficient range. Significant cognitive deficits were evident on evaluation. - Social work referral - Spoke to child welfare social worker Chelsea. Pt's is not agreeable for him to go to subacute rehab, states she wants to take him home when he is medically stable. States she will consider home health aide help later but not at this time. #) COPD - Duoneb Q6 hrs PRN - Pulmonology consult, Dr. Man: low dose corticosteroid course. Spoke to Dr. Man on the phone today- stated pt can get prednisone 20mg, decreased by 5mg every 4 days for 2 week course #) Deconditioning - Swallow eval- modified dysphagia diet: finely chopped and thin liquids - PT eval: recommended TCU for 2 weeks, therapy 3-5x a week, but as per social salty Tran pt does not qualify and would have to go to outpatient subacute rehab; family not agreeable to rehab at this time. #) History of smoking - 80 pack year smoking hx - Reported significant weight loss 60-70 lbs in past year - Low dose Chest CT - Extensive diffuse centrilobular pulmonary emphysema. No infiltrate. No pulmonary mass. No bullous change. Marked pulmonary hyperinflation. No evidence of pulmonary neoplasm. - Pulmonology consult Dr. Man- see above in #COPD #) Underweight - BMI 13.6 - Van Owner Operator consult - Significant weight loss 60-70 lbs in past year - PSA 2.79 - Fecal occult blood collected today #) History of HTN - Normotensive without medications - Monitor BP #) Dehydration, improving -Resolved #) DVT prophylaxis - Heparin 5000u SC Q12
[2017-05-02 08:20] VITALS: BP 121/62; RESP 18; TEMP 96.9; O2SAT 99
[2017-05-02] MEDS: Tiotropium 18 mcg Cap For Inhalation INH SCH (08:47)
[2017-05-02 09:12] VITALS: PULSE 82
--- NOTE | 2017-05-02 10:20 | CP.PCM.DIS ---
Provider - Provider Date of Admission: 04/28/17 09:12 Attending physician: Fred Clemons MD Primary care physician: Dr. Clemons Consults: Pulmonology- Dr. Man Psychiatry- Dr. Ritter Psychology- Dr. Mojica Time Spent in preparation of Discharge (in minutes): 45 Diagnosis - Discharge Diagnosis (1) COPD (chronic obstructive pulmonary disease) Status: Chronic Comment: seen by Dr. Man; prednisone taper starting at 20mg, decrease by 5mg every 4 days. (2) Dehydration Status: Resolved Comment: resolved, encouraged PO intake Hospital Course - Lab Results Lab Results: Most Recent Lab Values WBC 6.6 K/uL (4.8-10.8) 04/27/17 18:58 RBC 4.36 Mil/uL (4.40-5.90) L 04/27/17 18:58 Hgb 14.1 g/dL (12.0-18.0) 04/27/17 18:58 Hct 42.3 % (35.0-51.0) 04/27/17 18:58 MCV 97.1 fl (80.0-94.0) H 04/27/17 18:58 MCH 32.3 pg (27.0-31.0) H 04/27/17 18:58 MCHC 33.2 g/dL (33.0-37.0) 04/27/17 18:58 RDW 14.8 % (11.5-14.5) H 04/27/17 18:58 Plt Count 322 K/uL (130-400) 04/27/17 18:58 MPV 7.7 fl (7.2-11.7) 04/27/17 18:58 Neut % (Auto) 72.9 % (50.0-75.0) 04/27/17 18:58 Lymph % (Auto) 17.4 % (20.0-40.0) L 04/27/17 18:58 Nash % (Auto) 6.8 % (0.0-10.0) 04/27/17 18:58 Eos % (Auto) 2.0 % (0.0-4.0) 04/27/17 18:58 Baso % (Auto) 0.9 % (0.0-2.0) 04/27/17 18:58 Neut # (Auto) 4.8 K/uL (1.8-7.0) 04/27/17 18:58 Lymph # (Auto) 1.2 K/uL (1.0-4.3) 04/27/17 18:58 Nash # (Auto) 0.5 K/uL (0.0-0.8) 04/27/17 18:58 Eos # (Auto) 0.1 K/uL (0.0-0.7) 04/27/17 18:58 Baso # (Auto) 0.1 K/uL (0.0-0.2) 04/27/17 18:58 Sodium 141 mmol/l (132-148) 04/29/17 05:24 Potassium 4.3 MMOL/L (3.6-5.0) 04/29/17 05:24 Chloride 99 mmol/L (98-107) 04/29/17 05:24 Carbon Dioxide 35 mmol/L (22-30) H 04/29/17 05:24 Anion Gap 11 (10-20) 04/29/17 05:24 BUN 16 mg/dl (9-20) 04/29/17 05:24 Creatinine 0.9 mg/dl (0.8-1.5) 04/29/17 05:24 Est GFR ( Amer) > 60 04/29/17 05:24 Est GFR (Non-Af Amer) > 60 04/29/17 05:24 Random Glucose 84 mg/dL (75-110) 04/29/17 05:24 Hemoglobin A1c 5.7 % (4.2-6.5) 04/28/17 05:00 Calcium 9.2 mg/dL (8.4-10.2) 04/29/17 05:24 Total Bilirubin 0.4 mg/dl (0.2-1.3) 04/28/17 05:00 AST 22 U/L (17-59) 04/28/17 05:00 ALT 27 U/L (21-72) 04/28/17 05:00 Alkaline Phosphatase 57 U/L (38-126) 04/28/17 05:00 Total Creatine Kinase 48 U/L (55-170) L 04/27/17 18:58 Troponin I 0.0130 ng/mL (0.00-0.120) 04/27/17 18:58 Total Protein 5.9 G/DL (6.3-8.2) L 04/28/17 05:00 Albumin 3.2 g/dL (3.5-5.0) L 04/28/17 05:00 Globulin 2.7 gm/dL (2.2-3.9) 04/28/17 05:00 Albumin/Globulin Ratio 1.2 (1.0-2.1) 04/28/17 05:00 Triglycerides 49 mg/DL (0-149) 04/28/17 05:00 Cholesterol 131 mg/dL (0-199) 04/28/17 05:00 LDL Cholesterol Direct 70 mg/dL (0-129) 04/28/17 05:00 HDL Cholesterol 46 MG/DL (30-70) 04/28/17 05:00 Prostate Specific Ag 2.79 ng/ML (0.00-4.0) 04/28/17 11:06 Vitamin B12 395 pg/mL (239-931) 04/27/17 05:00 Folate 14.5 ng/mL 04/28/17 05:00 Thyroxine (T4) 6.75 ug/dl (5.5-11.0) 04/28/17 05:00 Total T3 0.878 nmol/L (1.49-2.60) L 04/28/17 05:00 TSH 3rd Generation 0.65 mIU/ML (0.46-4.68) 04/28/17 05:00 Alcohol, Quantitative < 10 mg/dl (0-10) 04/27/17 18:58 RPR Nonreactive (NONREACTIVE) 04/29/17 09:12 - Hospital Course Hospital Course: Mr. Galarza is a 76 yo M with PMH dementia, COPD, HTN, cachexia who presented to the hospital with deconditioning and dehydration. He had not been taking any medications at home other than O2 via NC; he had not taken any antihypertensive medicine in several years and presented as normotensive. He received IV fluids and dehydration resolved. Given his lack of follow up with his primary care doctor, extensive smoking history and reports of recent weight loss, he underwent CT scan of the chest which showed emphysematous changes and no sign of neoplasm, PSA was within normal limit as well. Pt was seen by psychiatrist Dr. Ritter who did not recommend inpatient treatment or 1:1, stated pt may benefit from outpatient follow up, and psychology evaluation. Psychology eval revealed that he scored deficient in all tasks on the dementia scale. Pt was seen by PT and OT as well, and TCU/subacute rehab was recommended, but pt's /director of business continuity Desiree was not agreeable at this time; she stated the family prefer pt go home and stated they would consider home services at a later time. Pt was also seen by concession stand attendant Dr. Man, who recommended that pt receive short course of low dose steroids (starting yesterday 05/01/17 with 20mg prednisone with taper by 5mg every 4 days for 2 weeks) and that otherwise pt can be discharged. Pt's was given a April 2017 calendar with appropriate dosages of prednisone (and corresponding number of 5mg pills) written out for the next two weeks. Discharge Exam - Head Exam Head Exam: NORMAL INSPECTION - Eye Exam Eye Exam: Normal appearance - ENT Exam ENT Exam: Mucous Membranes Moist - Respiratory Exam Respiratory Exam: NORMAL BREATHING PATTERN. absent: Respiratory Distress - Cardiovascular Exam Cardiovascular Exam: REGULAR RHYTHM, +S1, +S2 - GI/Abdominal Exam GI & Abdominal Exam: Normal Bowel Sounds, Soft - Back Exam Back exam: NORMAL INSPECTION - Neurological Exam Neurological exam: Alert - Psychiatric Exam Psychiatric exam: Normal Affect, Normal Mood - Skin Skin Exam: Dry, Normal Color, Warm Discharge Plan - Discharge Medications Prescriptions: predniSONE [predniSONE Tab] 5 mg PO ASDIR #36 tab - Follow Up Plan Condition: FAIR Disposition: HOME/ ROUTINE Patient education suggested?: Yes Instructions: Dehydration, Adult (DC) Additional Instructions: Please follow up with your PMD Dr. Clemons within 1 week. Referrals: Fred Clemons MD [Family Provider] -
== END 2017-05-02 09:15 | disposition home health service (06) | DRG 641 ==
LOC: H.ER 17:01 → H.ERHOLD 20:06 → H.TEL 23:07 → OBSVTOIN 04-28 09:12
PROVIDERS: ADMIT Family Medicine; ATTEND Family Medicine
DX: E86.0 Dehydration (principal); R64 Cachexia; Z99.81 Dependence on supplemental oxygen; F03.90 Unspecified dementia, unspecified severity, without behavioral disturbance, psychotic disturbance, mood disturbance, and anxiety; J43.2 Centrilobular emphysema; Z68.1 Body mass index [BMI] 19.9 or less, adult; E78.00 Pure hypercholesterolemia, unspecified; I10 Essential (primary) hypertension; E78.5 Hyperlipidemia, unspecified; Z87.891 Personal history of nicotine dependence; I25.10 Atherosclerotic heart disease of native coronary artery without angina pectoris; K59.00 Constipation, unspecified; R09.02 Hypoxemia; R63.6 Underweight

== ENCOUNTER 2018-01-28 16:41 | Emergency (ER) | payer MEDICARE, OTHER ==
[2018-01-28 16:46] VITALS: O2SAT 100
[2018-01-28] MEDS ORDERED: Albuterol-Ipratrop 3 mg / 0.5 (3 ml) UD INH STA ×2 (17:45)
[2018-01-28 17:57] LABS: BASO # 0.1 K/uL (0.0-0.2); BASO % 1.1 % (0.0-2.0); EOS # 0.2 K/uL (0.0-0.7); EOS % 4.7 % (0.0-4.0); LYMPH # 0.9 K/uL (1.0-4.3); LYMPH % 17.9 % (20.0-40.0); MEAN CELL VOLUME 96.3 fl (80.0-94.0); MEAN CORPUSCULAR HEMOGLOBIN 32.7 pg (27.0-31.0); MEAN PLATELET VOLUME 8.5 fl (7.2-11.7); MONO # 0.4 K/uL (0.0-0.8); MONO % 8.7 % (0.0-10.0); NEUT # 3.3 K/uL (1.8-7.0); NEUT % 67.6 % (50.0-75.0); NRBC % 0.1 % (0.0-0.0); RBC 3.99 Mil/uL (4.40-5.90); RED CELL DISTRIBUTION WIDTH 15.1 % (11.5-14.5); WHITE BLOOD COUNT 4.9 K/uL (4.8-10.8)
[2018-01-28 18:03] LABS: VENOUS BLOOD GAS BASE EXCESS 7.4 mmol/L (0.0-2.0); VENOUS BLOOD GAS PCO2 64 mmHg (40-60); VENOUS BLOOD GAS PO2 22 mm/Hg (30-55); VENOUS BLOOD PH 7.35 (7.32-7.43)
[2018-01-28] MEDS ORDERED: Albuterol-Ipratrop 3 mg / 0.5 (3 ml) UD ONE ×2 (18:09)
[2018-01-28 18:16] LABS: BLOOD UREA NITROGEN 26 mg/dl (9-20); CALCIUM 9.4 mg/dL (8.4-10.2); GFR NON-AFRICAN AMERICAN > 60
[2018-01-28 18:26] LABS: B-TYPE NATRIURETIC PEPTIDE 442 pg/ml (0-900)
[2018-01-28 18:35] VITALS: RESP 18
[2018-01-28 18:41] LABS: ALB/GLOB RATIO 1.2 (1.0-2.1); ALBUMIN 3.5 g/dL (3.5-5.0); ALT/SGPT 32 U/L (21-72); AST/SGOT 33 U/L (17-59); BLOOD UREA NITROGEN 24 mg/dl (9-20); GFR NON-AFRICAN AMERICAN > 60
--- NOTE | 2018-01-28 19:22 | ED PDOC ---
HPI: SOB/CHF/COPD Time Seen by Provider: 01/28/18 17:26 Chief Complaint (Nursing): Shortness Of Breath Chief Complaint (Provider): Shortness of Breath History Per: Patient History/Exam Limitations: no limitations Onset/Duration Of Symptoms: Hrs Associated Symptoms: denies: Chest Pain Additional Complaint(s): Federico Galarza is a 77 year old male with a past medical history of CAD, dementia, COPD, and currently work up ongoing for Parkinsons who is presenting to the ED for evaluation of difficulty breathing that patient states just started today. According to , she thinks that it has been going on longer as patient frequently removed his nasal cannula O2 and walks around. He denies any chest pain, fevers, or cough. PMD: Fred Clemons Past Medical History Reviewed: Historical Data, Nursing Documentation, Vital Signs Vital Signs: Last Vital Signs Temp 97.3 F L 01/28/18 16:44 Pulse 64 01/28/18 18:31 Resp 18 01/28/18 18:32 BP 144/71 01/28/18 18:31 Pulse Ox 100 01/28/18 18:32 - Medical History PMH: CAD, COPD, Dementia, Emphysema, HTN, Hypercholesterolemia Denies: HIV, Chronic Kidney Disease - Surgical History Surgical History: Coronary Stent - Family History Family History: States: Unknown Family Hx - Social History Current smoker - smoking cessation education provided: No Ex-Smoker (has not smoked in the last 12 months): Yes Alcohol: None Drugs: Denies - Home Medications Home Medications: Ambulatory Orders Medication Instructions Recorded predniSONE [predniSONE Tab] 5 mg PO ASDIR #36 tab 05/01/17 - Allergies Allergies/Adverse Reactions: Allergies Allergy/AdvReac Type Severity Reaction Status Date / Time No Known Allergies Allergy Verified 01/28/18 16:44 Review of Systems ROS Statement: Except As Marked, All Systems Reviewed And Found Negative Constitutional: Negative for: Fever Cardiovascular: Negative for: Chest Pain Respiratory: Positive for: Shortness of Breath. Negative for: Cough Physical Exam - Reviewed Nursing Documentation Reviewed: Yes Vital Signs Reviewed: Yes - Physical Exam Appears: Positive for: Well (thin elderly male with 2 liters nasal cannula), Non-toxic, No Acute Distress Head Exam: Positive for: ATRAUMATIC, NORMAL INSPECTION, NORMOCEPHALIC Skin: Positive for: Normal Color, Warm, DRY Eye Exam: Positive for: EOMI, Normal appearance, PERRL ENT: Positive for: Normal ENT Inspection Neck: Positive for: Normal, Painless ROM Cardiovascular/Chest: Positive for: Regular Rate, Rhythm. Negative for: Murmur Respiratory: Positive for: Normal Breath Sounds. Negative for: Wheezing, Respiratory Distress Gastrointestinal/Abdominal: Positive for: Normal Exam, Soft. Negative for: Tenderness Back: Positive for: Normal Inspection. Negative for: L CVA Tenderness, R CVA Tenderness Extremity: Positive for: Normal ROM. Negative for: Deformity, Swelling, Other (no peripheral edema ) Neurologic/Psych: Positive for: Alert, Oriented. Negative for: Motor/Sensory Deficits - Laboratory Results Result Diagrams: 01/28/18 17:44 01/28/18 18:22 - ECG O2 Sat by Pulse Oximetry: 100 (RA) Pulse Ox Interpretation: Normal Medical Decision Making Medical Decision Making: Time: 17:44 A/P: Workup for COPD exacerbation vs other infectious process --cardiac enzymes --EKG, labs, Chest x-ray --Reassess patient Scribe Attestation: Documented by Cammie Tom, acting as a scribe for Tamica Childs MD. Provider Scribe Attestation: All medical record entries made by the Scribe were at my direction and personally dictated by me. I have reviewed the chart and agree that the record accurately reflects my personal performance of the history, physical exam, medical decision making, and the department course for this patient. I have also personally directed, reviewed, and agree with the discharge instructions and disposition. 940pm Pt with no elevation of WBC. Labs including CE otherwise normal. Pt with lungs clear. Stable vitals. Pt states he is feeling better. Will contact his and possibly arrange transport for safe transport home. Disposition - Clinical Impression Clinical Impression: Stage 4 very severe COPD by GOLD classification - Disposition Disposition: Routine/Home Disposition Time: 21:45 Condition: IMPROVED Forms: [facility] (Polish)
[2018-01-29 00:09] VITALS: BP 132/68; PULSE 70; TEMP 97.8
--- NOTE | 2018-01-29 10:05 | RAD ---
Date of service: 01/28/2018 HISTORY: possible admission COMPARISON: 04/27/2017 FINDINGS: LUNGS: Chronic bilateral interstitial infiltrates. Small left pleural effusion. PLEURA: No significant pleural effusion identified, no pneumothorax apparent. CARDIOVASCULAR: No aortic atherosclerotic calcification present. Normal cardiac size. No pulmonary vascular congestion. OSSEOUS STRUCTURES: No significant abnormalities. VISUALIZED UPPER ABDOMEN: Normal. OTHER FINDINGS: None. IMPRESSION: Chronic bilateral interstitial infiltrates. Small left pleural effusion.
--- NOTE | 2018-01-29 21:44 | CARD ---
APPROVED REPORT Date of service: 01/28/2018 EKG Measurement Heart [id number] <Conclusion> Normal sinus rhythm Minimal voltage criteria for LVH, may be normal variant Inferior infarct, age undetermined Abnormal ECG
== END 2018-01-29 00:09 | disposition home or self-care (01) ==
LOC: H.ER 16:41
DX: J44.9 Chronic obstructive pulmonary disease, unspecified (principal); I10 Essential (primary) hypertension; Z87.891 Personal history of nicotine dependence; Z95.5 Presence of coronary angioplasty implant and graft; I25.10 Atherosclerotic heart disease of native coronary artery without angina pectoris; F03.90 Unspecified dementia, unspecified severity, without behavioral disturbance, psychotic disturbance, mood disturbance, and anxiety
CPT/HCPCS: 71045; 80053; 82803; 83880; 84484; 85025; 87804; 93005; 94640; 96374; 99284; J2930

== ENCOUNTER 2018-03-11 16:16 | Inpatient (IN) | payer MEDICARE, OTHER ==
[2018-03-11 17:49] LABS: BASO % 0.2 % (0.0-2.0); EOS % 0.4 % (0.0-4.0); HEMOGLOBIN 13.9 g/dL (12.0-18.0); LYMPH # 0.6 K/uL (1.0-4.3); LYMPH % 5.2 % (20.0-40.0); MEAN CELL VOLUME 98.2 fl (80.0-94.0); MEAN CORPUSCULAR HGB CONC 34.6 g/dL (33.0-37.0); MONO # 0.8 K/uL (0.0-0.8); NEUT # 9.6 K/uL (1.8-7.0); NEUT % 87.2 % (50.0-75.0); NRBC % 0.1 % (0.0-0.0); PLATELET COUNT 357 K/uL (130-400); RED CELL DISTRIBUTION WIDTH 14.8 % (11.5-14.5)
[2018-03-11 17:59] LABS: BLOOD UREA NITROGEN 29 mg/dl (9-20); CALCIUM 9.7 mg/dL (8.4-10.2); GFR NON-AFRICAN AMERICAN > 60
[2018-03-11 18:05] LABS: ALB/GLOB RATIO 1.1 (1.0-2.1); ALBUMIN 4.2 g/dL (3.5-5.0); ALT/SGPT 17 U/L (21-72); AST/SGOT 65 U/L (17-59)
--- NOTE | 2018-03-11 18:11 | ED PDOC ---
HPI: Trauma/Fall - HPI Time Seen by Provider: 03/11/18 16:50 Chief Complaint (Nursing): Trauma Chief Complaint (Provider): Fall History Per: Patient History/Exam Limitations: no limitations Onset/Duration Of Symptoms: Days (1x) Additional History Per: Family Additional Complaint(s): 77 y/o male was brought to the ED with daughter and . As per family, patient has history of frequent falls and they state the falls have increases since yest erday since the patient fell 5 times from 2:30AM to 3:00AM that was unwitnessed. This morning, patient was calling for them in the middle of night and upon falling, patient sustained a nose injury. Of note, patient lives with who is the same age and she states she has a difficult time taking care of patient. Otherwise, patient offers no complaints at this time. PMD: Dr. Clemons Past Medical History Reviewed: Historical Data, Nursing Documentation, Vital Signs Vital Signs: Last Vital Signs Temp 99.1 F 03/11/18 16:23 Pulse 87 03/11/18 16:23 Resp 20 03/11/18 16:23 BP 150/87 03/11/18 16:23 Pulse Ox 100 03/11/18 16:23 - Medical History PMH: CAD, COPD, Dementia, Emphysema, HTN, Hypercholesterolemia Denies: HIV, Chronic Kidney Disease - Surgical History Surgical History: Coronary Stent - Family History Family History: States: Unknown Family Hx - Social History Current smoker - smoking cessation education provided: No Alcohol: None Drugs: Denies - Home Medications Home Medications: Ambulatory Orders Medication Instructions Recorded RX: predniSONE [predniSONE Tab] 5 mg PO ASDIR #36 tab 05/01/17 - Allergies Allergies/Adverse Reactions: Allergies Allergy/AdvReac Type Severity Reaction Status Date / Time No Known Allergies Allergy Verified 03/11/18 16:22 Review of Systems ROS Statement: Except As Marked, All Systems Reviewed And Found Negative Constitutional: Negative for: Fever, Chills ENT: Positive for: Other (abrasion on the nose) Cardiovascular: Negative for: Chest Pain Respiratory: Negative for: Cough, Shortness of Breath Gastrointestinal: Negative for: Nausea, Vomiting, Abdominal Pain, Diarrhea Skin: Negative for: Rash Neurological: Negative for: Weakness, Numbness Psych: Negative for: Suicidal ideation (homicidal ideation) Physical Exam - Reviewed Nursing Documentation Reviewed: Yes Vital Signs Reviewed: Yes - Physical Exam Appears: Positive for: No Acute Distress Head Exam: Positive for: ATRAUMATIC, NORMAL INSPECTION, NORMOCEPHALIC Skin: Positive for: Normal Color, Warm, Dry. Negative for: Rash Eye Exam: Positive for: Normal appearance, EOMI, PERRL. Negative for: Periorbital swelling, Periorbital tenderness ENT: Positive for: Other (On nose there is superficial abrasion with mild swelling and tenderness, no septal hematoma bilateral) Neck: Positive for: Normal, Painless ROM, Supple. Negative for: Decreased ROM Cardiovascular/Chest: Positive for: Regular Rate, Rhythm, Other (chest is non- tender). Negative for: Murmur Respiratory: Positive for: Normal Breath Sounds. Negative for: Respiratory Distress Pulses-Dorsalis Pedis (R): 2+ Gastrointestinal/Abdominal: Positive for: Normal Exam (no ecchymosis ), Soft. Negative for: Tenderness, Guarding, Rebound Back: Positive for: Normal Inspection, Other (no ecchymosis). Negative for: L CVA Tenderness, R CVA Tenderness, Vertebral Tenderness (including no c-spin tenderness) Extremity: Positive for: Normal ROM (moving all extremities actively), Capillary Refill (less than 2 seconds), Other (On left elbow, there is echymosis, on right dorsal wrist and right 1st and 2nd toe there is mild echymosis. Both feet are warm ). Negative for: Tenderness (left elbow, right dorsal wrist, right 1st and 2nd toe), Deformity (right dorsal wrist), Swelling (left elbow, right dorsal wrist, right 1st and 2nd toe) Neurologic/Psych: Positive for: Alert, Oriented (x3) - Laboratory Results Result Diagrams: 03/11/18 17:30 03/11/18 17:30 Lab Results: Total Bilirubin 1.5 mg/dl (0.2-1.3) H 03/11/18 17:30 AST 65 U/L (17-59) H D 03/11/18 17:30 ALT 17 U/L (21-72) L D 03/11/18 17:30 Alkaline Phosphatase 72 U/L (38-126) 03/11/18 17:30 Total Protein 7.9 G/DL (6.3-8.2) 03/11/18 17:30 Albumin 4.2 g/dL (3.5-5.0) 03/11/18 17:30 Globulin 3.7 gm/dL (2.2-3.9) 03/11/18 17:30 Albumin/Globulin Ratio 1.1 (1.0-2.1) 03/11/18 17:30 - ECG ECG: Positive for: Interpreted By Me ECG Rhythm: Positive for: Sinus Rhythm. Negative for: ST/T Changes Rate: 86 O2 Sat by Pulse Oximetry: 100 (RA) Pulse Ox Interpretation: Normal - Radiology X-Ray: Interpreted by Me (CXR, wrist, foot x-rays) X-Ray Interpretation: No Acute Disease Medical Decision Making Medical Decision Making: Time: 1716 Plan: Cervical spine w/o contrast CT Head w/o contrast CT Maxillofacial w/o contrast CT EKG CMP CPK Troponin I CBC w/ differential Chest portable Glucose, POC monitoring and evaluation advisor IV insertion Elbow left 3 views [RAD] Foot right 3 views [RAD] Wrist, right 3 views [RAD] Urinalysis Reevaluation 1756 EXAM: CT Head without Intravenous Contrast. CLINICAL HISTORY: Trauma TECHNIQUE: Axial computed tomography images of the head/brain without intravenous contrast. 845.54 mGy-cm COMPARISON: None provided. FINDINGS: BRAIN Chronic periventricular and subcortical microvascular disease is seen. VENTRICLES: There is generalized parenchymal atrophy noted as demonstrated by symmetrical dilatation of ventricles and sulci. ORBITS: The orbits are unremarkable. SINUSES AND MASTOIDS: Severe bilateral chronic ethmoid and maxillary sinusitis. BONES: No fracture. SOFT TISSUES: Unremarkable. MISCELLANEOUS: Forehead swelling is seen. No acute intracranial pathology. IMPRESSION: 1. There is generalized parenchymal atrophy noted as demonstrated by symmetrical dilatation of ventricles and sulci. 2. Chronic periventricular and subcortical microvascular disease is seen. 3. Forehead swelling is seen. 4. 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 5. No acute intracranial pathology. Electronically signed on Mar 11, 2018 5:57:57 PM EST by: Jarrell Martinez M.D., MARGARITA Certified By [employer] & [employer] Trained MRI and CT Specialist 1800 EXAM: CT Maxillofacial without Intravenous Contrast. CLINICAL HISTORY: Trauma TECHNIQUE: Axial computed tomography images of the face without intravenous contrast. Sagittal and coronal reformatted images were generated. 726.10 mGy-cm CONTRAST: Without COMPARISON: None provided. FINDINGS: BONES: No acute fracture or aggressive appearing osseous lesion. The mandible is intact. SOFT TISSUES: Forehead swelling is seen. SINUSES: Severe bilateral chronic ethmoid and maxillary sinusitis. ORBITS: The orbits are normal. No retrobulbar hematoma or mass. IMPRESSION: 1. Forehead swelling is seen. 2. 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 3. No fracture. Electronically signed on Mar 11, 2018 6:00:48 PM EST by: Jarrell Martinez M.D., MARGARITA Certified By [employer] & [facility] [facility] Trained MRI and CT Specialist 1809 LFTs and bilirubin are elevated. Family reports no hx of liver disease, cholecystectomy, or alcoholism. Abd US ordered. 1815 EXAM: CT Cervical Spine Without IV contrast. CLINICAL HISTORY: Trauma TECHNIQUE: Axial computed tomography images of the cervical spine without intravenous contrast. Sagittal and coronal reformatted images were generated. COMPARISON: None provided. FINDINGS: ALIGNMENT: There is straightening of the cervical spine with approximate 3 mm anterolisthesis at the C2-C3 level. DEGENERATIVE CHANGES: There is diffuse advanced hypertrophic and degenerative change with disc space narrowing mainly at the C3-C4 C4-C5 C5-C6 and C6-C7 levels. SOFT TISSUES: Advanced atherosclerotic changes seen within the carotid arteries. BONES: No acute fracture or aggressive appearing osseous lesion. IMPRESSION: Diffuse advanced hypertrophic and degenerative changes with chronic disc disease at the C3 and C4 C4-C5 C5-C6 and C6-C7 levels. Minimal anterolisthesis at the C2-C3 level. No acute fracture identified. If warranted correlation with MRI examination may be considered. Electronically signed on Mar 11, 2018 6:16:44 PM EST by: Philip Reynolds M.D., Certified by ABR, Diagnostic Radiology 190 EXAM: CR left elbow, 3 View. CLINICAL HISTORY: Pt. fell COMPARISON: None provided. FINDINGS: BONES: No acute fracture or aggressive appearing osseous lesion. JOINTS: Mild osteoarthritic changes at the elbow. SOFT TISSUES: The soft tissues are unremarkable. IMPRESSION: No acute osseous abnormality. Mild osteoarthritic changes at the elbow. Electronically signed on Mar 11, 2018 7:07:58 PM EST by: Philip Reynolds M.D., Certified by ABR, Diagnostic Radiology 1940 Case d/w Dr. Andre, PMD is Dr. Clemons, arrangements made for admission. Informed that US is still pending. 1950 Dr. Andre in ED evaluating pt. at bedside. Scribe Attestation: Documented by Praveena Ellison, acting as a scribe for Jono Todd PA-C Provider Scribe Attestation: All medical record entries made by the Scribe were at my direction and persona lly dictated by me. I have reviewed the chart and agree that the record accurately reflects my personal performance of the history, physical exam, medical decision making, and the department course for this patient. I have also personally directed, reviewed, and agree with the discharge instructions and disposition. Disposition - Clinical Impression Clinical Impression: Frequent falls, Weakness, Dehydration, Transaminitis - Patient ED Disposition Is Patient to be Admitted: Yes - Disposition Disposition Time: 18:43 Condition: STABLE
[2018-03-11 18:45] LABS: LYMPHOCYTE 10 % (20-50); MONOCYTE 7 % (0-10); NEUTROPHIL 83 % (42-75); TOTAL CELLS COUNTED 100
[2018-03-11 18:46] LABS: PLATELET ESTIMATE NORMAL (NORMAL)
[2018-03-11 18:47] LABS: ANISOCYTOSIS SLIGHT; LARGE PLATELETS PRESENT; OVALOCYTES MODERATE
[2018-03-11] MEDS ORDERED: Sodium Chloride 0.9% 1,000 ML IV STA (19:05)
--- NOTE | 2018-03-11 21:13 | CP.PCM.HP ---
History of Present Illness - History of Present Illness History of Present Illness: HPI 76 yo M w/ PMH of COPD on home oxygen at 2L [place], history of HTN in the pase, baseline dementia is brought in to the ER by his family for generalized weakness, frequent falls, and malaise, decreased PO intake. History obtained from daughter and grandson at bedside, as pt is arousable and alerted, but does not answer questions appropriately. Family states that yesterday pt was out of bed from 230 am to 3 am and fell 5 times, unwitnessed, but that in the morning he was calling for them to help pick him up. He sustained some injuries to his face/nose as a result of the fall. Patient lives with who is the same age and she states she has a difficult time taking care of patient. Otherwise, patient offers no complaints at this time, does not answer questions. Of note, patient was last admitted April 2017 for dehydration/deconditioning; at that time was more ambulatory. Did not take any medications, was sent home with prednisone taper for COPD. At the time, he was evaluated by psychiatry and ps ychology- psychology eval revealed that he scored deficient in all tasks on the dementia scale. He was also evaluated by PHARMACY TECHNICIAN ASSISTANT who recommended modified dysphagia diet. At the time family was not agreeable to TCU or subacute rehab. PMD: Dr. Clemons (last visit mid-2017, as per pt's grandson) PMH: HTN (last admission was normotensive), HLD, COPD PSH: None SH: 80 Pack year smoking history. Smoked 2 packs per day for 40 years, however quit smoking in 2008. Patient lives with . Meds: Does not use meds at home aside from home O2 Allergies: None NOK- , Desiree, In ED: Vitals: BP 150/87, HR 87, RR 20, SpO2 100%, T 99.1 CBC: WBC 11, Hgb 13.9, Hct 40.3, PLT 357 CMP: hyperkalemia 5.5 (hemolyzed), BUN 29, tital bili 1.5, slight elevation in AST 65, CPK 270 Troponin neg Received: 1L NS @ 200 ml/hr Imaging: Head CT: IMPRESSION: 1. There is generalized parenchymal atrophy noted as demonstrated by symmetrical dilatation of ventricles and sulci. 2. Chronic periventricular and subcortical microvascular disease is seen. 3. Forehead swelling is seen. 4. 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 5. No acute intracranial pathology. CT Maxillofacial without Intravenous Contrast IMPRESSION: 1. Forehead swelling is seen. 2. 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 3. No fracture. EXAM: CT Cervical Spine Without IV contrast. Diffuse advanced hypertrophic and degenerative changes with chronic disc disease at the C3 and C4 C4-C5 C5-C6 and C6-C7 levels. Minimal anterolisthesis at the C2-C3 level. No acute fracture identified. If warranted correlation with MRI examination may be considered. CR left elbow, 3 View. IMPRESSION: No acute osseous abnormality. Mild osteoarthritic changes at the elbow. Also ordered in ED: Foot, wrist Xrays Abd sono due to elevated AST, bili Present on Admission - Present on Admission Any Indicators Present on Admission: No Review of Systems - Review of Systems Systems not reviewed;Unavailable: Dementia, Uncooperative Past Patient History - Past Medical History & Family History Past Medical History?: Yes - Past Social History Smoking Status: Former Smoker Alcohol: None Drugs: Denies - CARDIAC Hx Cardiac Disorders: Yes Hx Hypercholesterolemia: Yes Hx Hypertension: Yes - PULMONARY Hx Chronic Obstructive Pulmonary Disease (COPD): Yes Hx Emphysema: Yes - NEUROLOGICAL Hx Dementia: Yes - HEENT Hx HEENT Problems: No - RENAL Hx Chronic Kidney Disease: No - ENDOCRINE/METABOLIC Hx Endocrine Disorders: No - HEMATOLOGICAL/ONCOLOGICAL Hx Human Immunodeficiency Virus (HIV): No - INTEGUMENTARY Hx Dermatological Problems: No - MUSCULOSKELETAL/RHEUMATOLOGICAL Hx Falls: Yes (recurrent falls) - GASTROINTESTINAL Hx Gastrointestinal Disorders: No - GENITOURINARY/GYNECOLOGICAL Hx Prostate Problems: Yes - PSYCHIATRIC Hx Psychophysiologic Disorder: No Hx Substance Use: No - SURGICAL HISTORY Hx Coronary Stent: Yes (?) - ANESTHESIA Hx Anesthesia: Yes Hx Anesthesia Reactions: No Meds Allergies/Adverse Reactions: Allergies Allergy/AdvReac Type Severity Reaction Status Date / Time No Known Allergies Allergy Verified 03/11/18 16:22 Physical Exam - Constitutional Appears: Cachectic, Chronically Ill - Head Exam Head Exam: absent: ATRAUMATIC Additional comments: abrasion on nose - ENT Exam ENT Exam: Mucous Membranes Dry - Respiratory Exam Respiratory Exam: NORMAL BREATHING PATTERN. absent: Respiratory Distress - Cardiovascular Exam Cardiovascular Exam: REGULAR RHYTHM - GI/Abdominal Exam GI & Abdominal Exam: Soft. absent: Tenderness - Extremities Exam Extremities exam: Negative for: calf tenderness, pedal edema Additional comments: extremities warm, multiple abrasions from falls - Neurological Exam Neurological exam: Altered - Psychiatric Exam Psychiatric exam: Flat Affect - Skin Skin Exam: Dry, Warm Results - Vital Signs Recent Vital Signs: Last Vital Signs Temp 99.1 F 03/11/18 16:23 Pulse 86 03/11/18 19:59 Resp 20 03/11/18 16:23 BP 150/87 03/11/18 16:23 Pulse Ox 100 03/11/18 19:59 - Labs Result Diagrams: 03/11/18 17:30 03/11/18 17:30 Labs: Laboratory Results - last 24 hr 03/11/18 03/11/18 03/11/18 16:57 17:30 17:30 WBC 11.0 H D RBC 4.10 L Hgb 13.9 Hct 40.3 MCV 98.2 H MCH 34.0 H MCHC 34.6 RDW 14.8 H Plt Count 357 MPV 10.0 Neut % (Auto) 87.2 H Lymph % (Auto) 5.2 L [place] % (Auto) 7.0 Eos % (Auto) 0.4 Baso % (Auto) 0.2 Neut # (Auto) 9.6 H Lymph # (Auto) 0.6 L [place] # (Auto) 0.8 Eos # (Auto) 0.0 Baso # (Auto) 0.0 Neutrophils % (Manual) 83 H Lymphocytes % (Manual) 10 L Monocytes % (Manual) 7 Platelet Estimate Normal Large Platelets Present Anisocytosis (manual) Slight Ovalocytes Moderate Sodium 143 Potassium 5.5 H Chloride 104 Carbon Dioxide 33 H Anion Gap 12 BUN 29 H Creatinine 0.8 Est GFR ( Amer) > 60 Est GFR (Non-Af Amer) > 60 POC Glucose (mg/dL) 84 Random Glucose 92 Calcium 9.7 Total Bilirubin 1.5 H AST 65 H D ALT 17 L D Alkaline Phosphatase 72 Total Creatine Kinase Troponin I 0.0460 Total Protein 7.9 Albumin 4.2 Globulin 3.7 Albumin/Globulin Ratio 1.1 03/11/18 18:50 WBC RBC Hgb Hct MCV MCH MCHC RDW Plt Count MPV Neut % (Auto) Lymph % (Auto) [place] % (Auto) Eos % (Auto) Baso % (Auto) Neut # (Auto) Lymph # (Auto) [place] # (Auto) Eos # (Auto) Baso # (Auto) Neutrophils % (Manual) Lymphocytes % (Manual) Monocytes % (Manual) Platelet Estimate Large Platelets Anisocytosis (manual) Ovalocytes Sodium Potassium Chloride Carbon Dioxide Anion Gap BUN Creatinine Est GFR ( Amer) Est GFR (Non-Af Amer) POC Glucose (mg/dL) Random Glucose Calcium Total Bilirubin AST ALT Alkaline Phosphatase Total Creatine Kinase 270 H Troponin I Total Protein Albumin Globulin Albumin/Globulin Ratio Assessment & Plan - Assessment and Plan (Free Text) Assessment: 77 yo M w/ PMH of COPD on home oxygen at 2L [place], history of HTN in the pase, baseline dementia is brought in to the ER by his family for generalized weakness, frequent falls, and malaise, decreased PO intake. Pt is alert but not answering questions appropriately. Hemodynamically stable; afebrile, mild leukocytosis. Imaging done in ED: Head CT: IMPRESSION: 1. There is generalized parenchymal atrophy noted as demonstrated by symmetrical dilatation of ventricles and sulci. 2. Chronic periventricular and subcortical microvascular disease is seen. 3. Forehead swelling is seen. 4. 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 5. No acute intracranial pathology. CT Maxillofacial without Intravenous Contrast IMPRESSION: 1. Forehead swelling is seen. 2. 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 3. No fracture. EXAM: CT Cervical Spine Without IV contrast. Diffuse advanced hypertrophic and degenerative changes with chronic disc disease at the C3 and C4 C4-C5 C5-C6 and C6-C7 levels. Minimal anterolisthesis at the C2-C3 level. No acute fracture identified. If warranted correlation with MRI examination may be considered. CR left elbow, 3 View. IMPRESSION: No acute osseous abnormality. Mild osteoarthritic changes at the elbow. Plan: Frequent falls, deconditioning - Head CT- no acute pathology; pt does not endorse dizziness - Likely secondary to dementia - Follow up hip, foot, wrist Xrays - PT/OT eval when imaging comes back - Bactroban for abrasions Dehydration - BUN 29 - s/p 2L NS in ED; now D5/.45%NS @ 100 ml/hr - F/u on BMP Dementia -Chronic, but appears to be worsening COPD, stable - Duoneb TID PRN - O2 at 2L [place] Dysphagia - NPO for now - On last admission, required dysphagia diet - Swallow eval Hyperbilirubinemia - Repeat CMP - F/u abdominal u/s ordered in ED Chronic sinusitis -Asymptomatic, afebrile Hyperkalemia - Hemolyzed specimen, repeat in am; correct as needed History of HTN - Normotensive without medications - Monitor BP DVT prophylaxis - SCD for now Pt discussed w/ Dr. Andre.
[2018-03-11] MEDS ORDERED: Dextrose 5%/0.45% NS 1,000 ML IV SCH (21:45)
[2018-03-12] MEDS: Dextrose 5%/0.45% NS 1,000 ML IV SCH ×3 (00:51→20:30)
[2018-03-12] MEDS: Albuterol-Ipratrop 3 mg / 0.5 (3 ml) UD INH PRN ×2 (00:58→14:16)
[2018-03-12 08:26] LABS: BASO % 0.3 % (0.0-2.0); EOS % 0.5 % (0.0-4.0); HEMOGLOBIN 12.3 g/dL (12.0-18.0); LYMPH # 0.6 K/uL (1.0-4.3); LYMPH % 6.6 % (20.0-40.0); MEAN CELL VOLUME 98.4 fl (80.0-94.0); MEAN CORPUSCULAR HEMOGLOBIN 32.9 pg (27.0-31.0); MEAN CORPUSCULAR HGB CONC 33.4 g/dL (33.0-37.0); MEAN PLATELET VOLUME 8.8 fl (7.2-11.7); MONO # 0.8 K/uL (0.0-0.8); MONO % 8.7 % (0.0-10.0); NEUT # 7.4 K/uL (1.8-7.0); NEUT % 83.9 % (50.0-75.0); RBC 3.74 Mil/uL (4.40-5.90); RED CELL DISTRIBUTION WIDTH 14.9 % (11.5-14.5); WHITE BLOOD COUNT 8.8 K/uL (4.8-10.8)
[2018-03-12 08:34] LABS: ALB/GLOB RATIO 1.1 (1.0-2.1); ALBUMIN 3.5 g/dL (3.5-5.0); ALT/SGPT 24 U/L (21-72); AST/SGOT 35 U/L (17-59); BLOOD UREA NITROGEN 25 mg/dl (9-20); CALCIUM 9.1 mg/dL (8.4-10.2); GFR NON-AFRICAN AMERICAN > 60
[2018-03-12 09:50] LABS: SQUAMOUS EPITHIAL < 1 /hpf (0-5); URINE AMORPHOUS SEDIMENT RARE /ul (<OCC); URINE BILIRUBIN NEGATIVE (NEGATIVE); URINE BLOOD MODERATE (NEGATIVE); URINE CLARITY SLIGHTY-CLOUDY (Clear); URINE COLOR YELLOW (YELLOW); URINE GLUCOSE (UA) NEG (NEGATIVE); URINE HYALINE CAST 0-2 /hpf (0-2); URINE LEUKOCYTE ESTERASE NEG Leu/uL (Negative); URINE PROTEIN 30 mg/dL (NEGATIVE); URINE UROBILINOGEN 0.2-1.0 mg/dL (0.2-1.0)
--- NOTE | 2018-03-12 10:43 | RAD ---
Date of service: 03/11/2018 PROCEDURE: Right Wrist Radiographs. HISTORY: trauma COMPARISON: None. FINDINGS: BONES: No acute fracture or destructive bony lesion identified. JOINTS: Degenerative cortical sclerosis at the radiocarpal joints. No dislocation. SOFT TISSUES: Normal. OTHER FINDINGS: None. IMPRESSION: No acute fracture or dislocation. Degenerative changes as discussed above.
--- NOTE | 2018-03-12 10:44 | RAD ---
Date of service: 03/11/2018 PROCEDURE: Radiographs of the left elbow. HISTORY: trauma COMPARISON: No prior. FINDINGS: BONES: Normal. No fracture. JOINTS: Normal. No osteoarthritis. SOFT TISSUES: Normal. JOINT EFFUSION: None. OTHER FINDINGS: None IMPRESSION: Unremarkable radiographs of the left elbow.
--- NOTE | 2018-03-12 10:45 | RAD ---
Date of service: 03/11/2018 PROCEDURE: Right Foot Radiographs. HISTORY: trauma COMPARISON: None. FINDINGS: BONES: No acute cardiopulmonary disease appreciated. JOINTS: Degenerative sclerosis appreciate throughout the joints of the forefoot midfoot and hindfoot diffusely, seen worst at the interphalangeal joints, 1st metatarsophalangeal joint, talocalcaneal joint and talonavicular joint. SOFT TISSUES: Normal. OTHER FINDINGS: None. IMPRESSION: No acute fracture or dislocation. Degenerative right foot changes are as discussed above.
--- NOTE | 2018-03-12 10:48 | RAD ---
Date of service: 03/11/2018 HISTORY: fall COMPARISON: No prior. FINDINGS: LUNGS: Extensive COPD changes are manifest by fibrosis, emphysema and hyperinflation bilaterally. No alveolitis appreciated bilaterally. Patient is left femoral screws left base PLEURA: No significant pleural effusion identified, no pneumothorax apparent. CARDIOVASCULAR: Calcific atherosclerotic changes are seen related to the thoracic aorta. Normal cardiac size. Pulmonary artery hypertension is suggested. OSSEOUS STRUCTURES: No significant abnormalities. VISUALIZED UPPER ABDOMEN: Normal. OTHER FINDINGS: None. IMPRESSION: Classic COPD pattern reiterated without acute interval changes. Left forearm obscures left base somewhat.
--- NOTE | 2018-03-12 11:30 | CT ---
Date of service: 03/11/2018 PROCEDURE: CT HEAD WITHOUT CONTRAST. HISTORY: trauma COMPARISON: Unenhanced head CT 04/27/2017. TECHNIQUE: Axial computed tomography images were obtained through the head/brain without intravenous contrast. Radiation dose: Total exam DLP = 845.54 mGy-cm. This CT exam was performed using one or more of the following dose reduction techniques: Automated exposure control, adjustment of the mA and/or kV according to patient size, and/or use of iterative reconstruction technique. FINDINGS: HEMORRHAGE: No intracranial hemorrhage. BRAIN: Good corticomedullary differentiation is seen. Reiterated diffuse cerebral atrophy and chronic microangiopathy. No suspicious extra-axial fluid collection is identified and the midline brain anatomy appears grossly nonfocal as imaged. No mass effect identified. VENTRICLES: Unremarkable. No hydrocephalus. CALVARIUM: No destructive bony lesion or displaced fracture identified including through the skullbase. Trace left frontal scalp edema noted. PARANASAL SINUSES: Incidental bilateral maxillary and ethmoid sinusitis identified in the interval. MASTOID AIR CELLS: Unremarkable as visualized. No inflammatory changes. OTHER FINDINGS: None. IMPRESSION: No intracranial hemorrhage or fracture. No parenchymal edema. Stable age related neuro degenerative change are identified. Incidental bilateral maxillary and ethmoid sinusitis noted.
--- NOTE | 2018-03-12 11:35 | CT ---
Date of service: 03/11/2018 PROCEDURE: CT MAXILLOFACIAL BONES WITHOUT CONTRAST HISTORY: trauma COMPARISON: None available. TECHNIQUE: Contiguous axial CT images of the maxillofacial bones were obtained. Coronal and sagittal reformats were generated. Radiation dose: Total exam DLP = 726.1 mGy-cm. This CT exam was performed using one or more of the following dose reduction techniques: Automated exposure control, adjustment of the mA and/or kV according to patient size, and/or use of iterative reconstruction technique. FINDINGS: NASAL BONES: Unremarkable. ORBITS: Unremarkable. PARANASAL SINUSES/ MASTOIDS: Bilateral maxillary and ethmoid sinus disease. MAXILLA: Unremarkable. MANDIBLE/ TEMPOROMANDIBULAR JOINTS: Unremarkable. SKULL BASE: Unremarkable. TEMPORAL BONES: Middle ears and mastoid grossly unremarkable. OTHER FINDINGS: None. IMPRESSION: Unremarkable non contrast enhanced CT of the maxillofacial bones. Incidental sinusitis as discussed above. Concordant preliminary report from [facility], 03/11/2018 6 o'clock p.m.
--- NOTE | 2018-03-12 11:44 | CT ---
Date of service: 03/11/2018 PROCEDURE: CT Cervical Spine without contrast HISTORY: trauma COMPARISON: None available. TECHNIQUE: Axial computed tomography images were obtained of the cervical spine without the use of intravenous contrast. Coronal and sagittal reformatted images were created and reviewed. Radiation dose: Total exam DLP = 311.71 mGy-cm. This CT exam was performed using one or more of the following dose reduction techniques: Automated exposure control, adjustment of the mA and/or kV according to patient size, and/or use of iterative reconstruction technique. FINDINGS: VERTEBRAE: Straightened curvature. Grade 1 spondylolisthesis with C2 slightly anterior to C3 on degenerative basis. No fracture identified throughout. Advanced degenerative changes seen throughout the intervertebral disc spaces diffusely as well as the C1-2 articulation. Craniocervical junction appears intact. DISCS/SPINAL CANAL/NEURAL FORAMINA: C2-3 spondylolisthesis identified with [id number] left neural foraminal stenosis. C3-4 moderate bilateral degenerative neural foraminal stenosis without central canal stenosis. At C4-5, a disc osteophyte results in mild central stenosis with degenerative neural foraminal stenoses appearing moderate severity bilaterally. At C5-6, severe right and moderate to severe left degenerative neural foraminal stenoses are identified with disc osteophyte complex resulting in mild central stenosis. At C6-7 disc osteophyte complex results in a borderline central stenosis with mild bilateral degenerative neural foraminal stenosis. C7-T1 appears unremarkable. PARASPINAL SOFT TISSUES: Unremarkable. OTHER FINDINGS: None. IMPRESSION: No acute fracture appreciated. Degenerative spondylolisthesis C2-3, grade 1. Multilevel degenerative neural foraminal stenosis as described above as well as occasional mild central stenosis a multiple mid inferior cervical levels. MRI can be utilized for added characterization if clinically warranted.
--- NOTE | 2018-03-12 12:42 | CP.PCM.PN ---
<Kyung Mg - Last Filed: 03/12/18 13:09> Subjective - Date & Time of Evaluation Date of Evaluation: 03/12/18 Time of Evaluation: 08:35 - Subjective Subjective: Patient seen in bed awake, alert and responsive to questions. No acute events overnight. Mild confusion present. Denies chest pain, dysuria, nausea and vomiting but admits to headache and weakness. Objective - Vital Signs/Intake and Output Vital Signs (last 24 hours): Temp Pulse Resp BP Pulse Ox 98 F 66 20 143/67 99 03/12/18 08:04 03/12/18 08:04 03/12/18 08:04 03/12/18 08:04 03/12/18 08:04 - Medications Medications: Current Medications Albuterol/Ipratropium (Duoneb 3 Mg/0.5 Mg (3 Ml) Ud) 3 ml INH RTID PRN PRN Reason: Shortness of Breath Last Admin: 03/12/18 00:58 Dose: 3 ml Dextrose/Sodium Chloride (Dextrose 5%/0.45% Ns 1000 Ml) 1,000 mls @ 100 mls/hr IV .Q10H NORBERTO Stop: 03/12/18 21:46 Last Admin: 03/12/18 00:51 Dose: 100 mls/hr - Labs Labs: 03/12/18 05:30 03/12/18 05:30 - Constitutional Appears: No Acute Distress, Confused - Head Exam Additional comments: abrasion on nose and above left eyebrow, no active bleeding - Eye Exam Eye Exam: Normal appearance - ENT Exam ENT Exam: Mucous Membranes Dry - Neck Exam Neck Exam: Normal Inspection - Respiratory Exam Respiratory Exam: Decreased Breath Sounds, Wheezes, NORMAL BREATHING PATTERN - Cardiovascular Exam Cardiovascular Exam: REGULAR RHYTHM - GI/Abdominal Exam GI & Abdominal Exam: Soft. absent: Tenderness - Extremities Exam Extremities Exam: Normal Inspection Additional comments: multiple abrasions bilaterally, no active bleeding - Neurological Exam Neurological Exam: Alert, Altered, Awake - Psychiatric Exam Psychiatric exam: Normal Mood - Skin Skin Exam: Abrasion (as noted above), Dry, Normal Color Assessment and Plan - Assessment and Plan (Free Text) Assessment: 77 yo M w/ PMH of COPD on home oxygen at 2L [place], history of HTN in the past, baseline dementia is brought in to the ER by his family for generalized weakness, frequent falls, and malaise, decreased PO intake. Pt is alert but not answering questions appropriately. Hemodynamically stable; afebrile Imaging done in ED: Head CT (03/11/18): IMPRESSION: 1. There is generalized parenchymal atrophy noted as demonstrated by symmetrical dilatation of ventricles and sulci. 2. Chronic periventricular and subcortical microvascular disease is seen. 3. Forehead swelling is seen. 4. 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 5. No acute intracranial pathology. CT Maxillofacial without Intravenous Contrast (03/11/18): IMPRESSION: 1. Forehead swelling is seen. 2. 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 3. No fracture. CT Cervical Spine Without IV contrast (03/11/18): Diffuse advanced hypertrophic and degenerative changes with chronic disc disease at the C3 and C4 C4-C5 C5-C6 and C6-C7 levels. Minimal anterolisthesis at the C2-C3 level. No acute fracture identified. If warranted correlation with MRI examination may be considered. Elbow XR (03/11/18): IMPRESSION: Unremarkable radiographs of the left elbow. Foot XR (03/11/18): IMPRESSION: No acute fracture or dislocation. Degenerative right foot changes. Wrist XR (03/11/18): IMPRESSION: No acute fracture or dislocation. Degenerative changes. Chest XR (03/11/18): IMPRESSION: Classic COPD pattern reiterated without acute interval changes. Left forearm obscures left base somewhat. Hip/Pelvis XR (03/12/18): Pending final result Plan: Frequent falls, deconditioning - Head CT- no acute pathology; pt does not endorse dizziness - Likely secondary to dementia - Follow-up hip XR - PT/OT eval after hip XR - Bactroban for abrasions Hyperkalemia - Improved - K 3.6 (5.5 on admission) Transaminitis - Improved - AST/ALT 35/24; (65/17 on admission) - Follow-up Hepatitis panel Leukocytosis - Improved - WBC 8.8 (11.0 on admission) Dehydration - Improving - BUN 25 (29 on admission) - 2L NS in ED - IVF: D5/.45%NS @ 100 ml/hr Dementia -Chronic COPD, stable - Duoneb Q6H - O2 at 2L [place] Dysphagia - Dysphagia diet - Last admission (04/2017) = dysphagia diet - Swallow eval pending Hyperbilirubinemia - Improved - Total bili 0.6 (1.5 on admission) Chronic sinusitis -Asymptomatic, afebrile History of HTN - Normotensive without medications - Monitor BP DVT prophylaxis - SCD for now <Shannon Marin - Last Filed: 03/12/18 15:56> Objective - Vital Signs/Intake and Output Vital Signs (last 24 hours): Temp Pulse Resp BP Pulse Ox 98 F 66 20 143/67 99 03/12/18 08:04 03/12/18 08:04 03/12/18 08:04 03/12/18 08:04 03/12/18 08:04 - Medications Medications: Current Medications Albuterol/Ipratropium (Duoneb 3 Mg/0.5 Mg (3 Ml) Ud) 3 ml INH RTID PRN PRN Reason: Shortness of Breath Last Admin: 03/12/18 14:16 Dose: 3 ml Dextrose/Sodium Chloride (Dextrose 5%/0.45% Ns 1000 Ml) 1,000 mls @ 100 mls/hr IV .Q10H NORBERTO Stop: 03/12/18 21:46 Last Admin: 03/12/18 15:39 Dose: 100 mls/hr - Labs Labs: 03/12/18 05:30 03/12/18 05:30 Attending/Attestation - Attestation I have personally seen and examined this patient.: Yes I have fully participated in the care of the patient.: Yes I have reviewed all pertinent clinical information, including history, physical exam and plan: Yes Notes (Text): Delirium worsening of baseline dementia ? due to Dehydration/decrease PO intake - IVF hydration Physical Deconditioning/ Gait instability - wt loss , decrease PO intake - physical therapy - nutrition consult - Ensure TID - no focal neuro deficit
--- NOTE | 2018-03-12 17:16 | US ---
Date of service: 03/11/2018 HISTORY: elevated LFTs and bilirubin COMPARISON: None. TECHNIQUE: Sonographic evaluation of the abdomen. FINDINGS: LIVER: Measures 16.0 cm. Normal echogenicity of the liver parenchyma. No mass. No intrahepatic bile duct dilatation. GALLBLADDER: Not visualized. Clinically correlate as to the possibility of prior cholecystectomy. COMMON BILE DUCT: Measures 7.6 mm. No choledocholithiasis or significant dilatation evident. PANCREAS: Completely obscured by overlying bowel gas. RIGHT KIDNEY: Measures 10.0cm. Normal echogenicity. No calculus, mass, or hydronephrosis. LEFT KIDNEY: Measures 8.8cm. No gross pathology appreciated. Body habitus limits full evaluation. SPLEEN: Relatively small spleen identified at 6.2 cm without focal mass evident. AORTA: No aneurysmal dilatation. IVC: Unremarkable. OTHER FINDINGS: None. IMPRESSION: Nonvisualized gallbladder which could be a function of prior cholecystectomy though contraction is possibility. Sonic window to the gallbladder fossa is limited. Similarly, the pancreas is not identified due to body habitus related obscuring of the lesser sac. Lower limits normal size kidney. Discordant from preliminary report provided by [facility] radiologist on 03/11/2018 9:03 p.m.. I do not see hepatic steatosis.
--- NOTE | 2018-03-12 17:38 | RAD ---
Date of service: 03/12/2018 PROCEDURE: BILATERAL HIPS WITH PELVIS RADIOGRAPHS HISTORY: falls COMPARISON: None available. TECHNIQUE: Frontal views of the pelvis and bilateral hip joints been submitted with frog-leg lateral views of the bilateral hip joints as well. FINDINGS: No acute fracture dislocation throughout the pelvic ring or bilateral hip joints. Diffuse osteopenia suggests osteoporosis. No destructive bony lesion appreciable. Bilateral sacroiliac and hip joint degenerative changes are moderate in severity. Pubic symphysis is intact as well as pubic bony anatomy. Soft tissues reflect phleboliths bilaterally, inferiorly. IMPRESSION: No acute fracture or dislocation bilateral hip joints or pelvic ring. Diffuse osteopenia suggests osteoporosis. Degenerative changes bilateral hip and sacroiliac joints.
[2018-03-12 17:57] VITALS: BMI 21.2
--- NOTE | 2018-03-12 22:47 | CARD ---
APPROVED REPORT Date of service: 03/11/2018 EKG Measurement Heart [id number] <Conclusion> Sinus rhythm with occasional premature ventricular complexes Possible Inferior infarct, age undetermined ST & T wave abnormality, consider anterior ischemia Prolonged QT Abnormal ECG
[2018-03-13 06:40] LABS: HEMOGLOBIN 11.6 g/dL (12.0-18.0); MEAN CELL VOLUME 98.9 fl (80.0-94.0); MEAN CORPUSCULAR HEMOGLOBIN 33.5 pg (27.0-31.0); MEAN CORPUSCULAR HGB CONC 33.9 g/dL (33.0-37.0); RBC 3.46 Mil/uL (4.40-5.90); RED CELL DISTRIBUTION WIDTH 14.8 % (11.5-14.5); WHITE BLOOD COUNT 7.3 K/uL (4.8-10.8)
[2018-03-13 07:37] LABS: ALB/GLOB RATIO 1.1 (1.0-2.1); ALBUMIN 3.1 g/dL (3.5-5.0); ALT/SGPT 41 U/L (21-72); AST/SGOT 49 U/L (17-59); BLOOD UREA NITROGEN 20 mg/dl (9-20); CALCIUM 8.8 mg/dL (8.4-10.2); GFR NON-AFRICAN AMERICAN > 60
[2018-03-13] MEDS ORDERED: Dextrose 5%/0.9% NS 1,000 ML IV SCH (08:30)
[2018-03-13] MEDS: Enoxaparin 40 mg Syringe SC SCH (09:05)
--- NOTE | 2018-03-13 10:40 | CP.PCM.PN ---
<MarioJaquan - Last Filed: 03/13/18 10:35> Subjective - Date & Time of Evaluation Date of Evaluation: 03/13/18 Time of Evaluation: 10:35 - Subjective Subjective: 77 y/o M patient seen in bed awake, alert and responsive to questions. Patient looks weak, Tired, sleepy but arousable. Patient denies any acute events overnight. He denies any chest pain, dysuria, nausea and vomiting but admits to have weakness. Objective - Vital Signs/Intake and Output Vital Signs (last 24 hours): Temp Pulse Resp BP Pulse Ox 97.9 F 57 L 20 138/75 100 03/13/18 08:54 03/13/18 08:54 03/13/18 08:54 03/13/18 08:54 03/13/18 08:54 - Medications Medications: Current Medications Albuterol/Ipratropium (Duoneb 3 Mg/0.5 Mg (3 Ml) Ud) 3 ml INH RTID PRN PRN Reason: Shortness of Breath Last Admin: 03/12/18 14:16 Dose: 3 ml Enoxaparin Sodium (Lovenox) 40 mg SC DAILY NORBERTO; Protocol Last Admin: 03/13/18 09:05 Dose: 40 mg Dextrose/Sodium Chloride (Dextrose 5%/0.9% Ns 1000 Ml) 1,000 mls @ 60 mls/hr IV .[id number] NORBERTO Stop: 03/14/18 08:24 Last Admin: 03/13/18 09:06 Dose: 60 mls/hr - Labs Labs: 03/13/18 06:00 03/13/18 06:00 - Constitutional Appears: Non-toxic - Head Exam Head Exam: NORMOCEPHALIC - Eye Exam Eye Exam: EOMI, PERRL Pupil Exam: NORMAL ACCOMODATION - ENT Exam ENT Exam: Mucous Membranes Moist Additional comments: Abrasion on nose and above left eyebrow, no active bleeding - Neck Exam Neck Exam: Full ROM - Respiratory Exam Respiratory Exam: Decreased Breath Sounds, Wheezes - Cardiovascular Exam Cardiovascular Exam: REGULAR RHYTHM, +S1, +S2 - GI/Abdominal Exam GI & Abdominal Exam: Soft, Normal Bowel Sounds - Extremities Exam Extremities Exam: Normal Capillary Refill Additional comments: Multiple abrasions bilaterally, no active bleeding B/L knee ecchymosis with abrasion covered by hard scab on the R side, R Hallux tip ecchymosis. B/L elbow ecchymosis - Back Exam Back Exam: NORMAL INSPECTION - Neurological Exam Neurological Exam: Alert, Awake Neuro motor strength exam: Left Upper Extremity: 5, Right Upper Extremity: 5, Left Lower Extremity: 5, Right Lower Extremity: 5 - Psychiatric Exam Additional comments: Confused - Skin Skin Exam: Dry, Warm Additional comments: B/L Abrasion (as noted above), ecchymosis Assessment and Plan - Assessment and Plan (Free Text) Assessment: 77 yo M w/ PMH of COPD on home oxygen at 2L [place], history of HTN in the past, baseline dementia is brought in to the ER by his family for generalized weakness, frequent falls, and malaise, decreased PO intake. Pt is alert but not answering questions appropriately. Hemodynamically stable; afebrile Imaging done in ED: Head CT (03/11/18): IMPRESSION: 1. There is generalized parenchymal atrophy noted as demonstrated by symmetrical dilatation of ventricles and sulci. 2. Chronic periventricular and subcortical microvascular disease is seen. 3. Forehead swelling is seen. 4. 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 5. No acute intracranial pathology. CT Maxillofacial without Intravenous Contrast (03/11/18): IMPRESSION: 1. Forehead swelling is seen. 2. 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 3. No fracture. CT Cervical Spine Without IV contrast (03/11/18): Diffuse advanced hypertrophic and degenerative changes with chronic disc disease at the C3 and C4 C4-C5 C5-C6 and C6-C7 levels. Minimal anterolisthesis at the C2-C3 level. No acute fracture identified. If warranted correlation with MRI examination may be considered. Elbow XR (03/11/18): IMPRESSION: Unremarkable radiographs of the left elbow. Foot XR (03/11/18): IMPRESSION: No acute fracture or dislocation. Degenerative right foot changes. Wrist XR (03/11/18): IMPRESSION: No acute fracture or dislocation. Degenerative changes. Chest XR (03/11/18): IMPRESSION: Classic COPD pattern reiterated without acute interval changes. Left forearm obscures left base somewhat. Hip/Pelvis XR (03/12/18): Diffuse osteopenia and degenerative changes of b/l hip and sacroiliac joints. No acute fractures. Abdominal u/s (03/11/2018): Non visualized gall bladder may be due to prior removal. Non visualized pancreas may be due to body habitus obscuring lesser sac. Lower limit normal size kidneys. Plan: Frequent falls, deconditioning - Head CT- no acute pathology; pt does not endorse dizziness - Likely secondary to dementia - hip XR: Osteopenia, degenerative changes of the hip and sacroiliac joints b/l. - PT/OT eval - C/W Bactroban for abrasions Hyperkalemia - Improved - K 4.0 (5.5 on admission) Transaminitis - Improved - AST/ALT 49/41; (65/17 on admission) - Follow-up Hepatitis panel Leukocytosis - Improved - WBC 7.3 (11.0 on admission) Dehydration - Improving - BUN 20 (29 on admission) - 2L NS in ED - C/W IVF: D5/.45%NS @ 100 ml/hr Dementia -Chronic COPD, stable - C/W Duoneb Q6H - C/W O2 at 2L NC Dysphagia - Dysphagia diet - Last admission (04/2017) = dysphagia diet - Swallow eval pending Hyperbilirubinemia - Improved - Total bili 0.5 (1.5 on admission) Chronic sinusitis -Asymptomatic, afebrile History of HTN - Normotensive without medications - Monitor BP DVT prophylaxis - SCD for now <Shannon Marin - Last Filed: 03/13/18 17:29> Objective - Vital Signs/Intake and Output Vital Signs (last 24 hours): Temp Pulse Resp BP Pulse Ox 98.1 F 139 H 22 178/76 H 100 03/13/18 17:08 03/13/18 17:11 03/13/18 17:08 03/13/18 17:11 03/13/18 17:08 - Medications Medications: Current Medications Albuterol/Ipratropium (Duoneb 3 Mg/0.5 Mg (3 Ml) Ud) 3 ml INH RQ4 NORBERTO Last Admin: 03/13/18 16:19 Dose: 3 ml Enoxaparin Sodium (Lovenox) 40 mg SC DAILY NORBERTO; Protocol Last Admin: 03/13/18 09:05 Dose: 40 mg Magnesium Sulfate/Dextrose (Magnesium Sulfate 1 Gm/100 Ml D5w) 1 gm in 100 mls @ 200 mls/hr IVPB ONCE ONE Stop: 03/13/18 17:29 Methylprednisolone (Solu-Medrol) 60 mg IV Q8 NORBERTO - Labs Labs: 03/13/18 06:00 03/13/18 06:00 Attending/Attestation - Attestation I have personally seen and examined this patient.: Yes I have fully participated in the care of the patient.: Yes I have reviewed all pertinent clinical information, including history, physical exam and plan: Yes Notes (Text): Physical Deconditioning/ Gait instability - wt loss , decrease PO intake - physical therapy - nutrition consult - Ensure TID - no focal neuro deficit Alzheimer's Dementia COPD, chronic - Duoneb prn
[2018-03-13] MEDS ORDERED: Pneumococcal 23-Valent Vaccine IM ONE (12:30)
[2018-03-13] MEDS ORDERED: Influenza Vaccine (5 YR UP)/PF 60 MCG/0.5 ML SYR IM ONE (12:30)
[2018-03-13] MEDS: Albuterol-Ipratrop 3 mg / 0.5 (3 ml) UD INH PRN (16:01)
[2018-03-13] MEDS ORDERED: methylPREDNISolone 125 MG in Sodium Chloride 0.9% 50 ML IVPB STA (16:13)
[2018-03-13] MEDS ORDERED: Nitroglycerin 2% Ointment Foilpak UD TOP STA (16:16)
[2018-03-13] MEDS ORDERED: Nitroglycerin 0.4 mg/hr Top Patch TD ONE (16:18)
[2018-03-13] MEDS ORDERED: Albuterol-Ipratrop 3 mg / 0.5 (3 ml) UD INH STA (16:18)
[2018-03-13] MEDS: Albuterol-Ipratrop 3 mg / 0.5 (3 ml) UD INH SCH ×3 (16:19→23:56)
[2018-03-13 16:29] LABS: ABG ALLEN TEST YES; ARTERIAL BLOOD GAS HEMOGLOBIN 13.2 g/dL (11.7-17.4); ARTERIAL BLOOD GAS O2 CAPACITY 17.9 mL/dL (16-24); ARTERIAL BLOOD GAS O2 CONTENT 17.6 ML/dL (15-23); ARTERIAL BLOOD GAS O2 SAT 98.5 % (95-98); ARTERIAL BLOOD GAS PCO2 60 mm/Hg (35-45); ARTERIAL BLOOD GAS PH 7.36 (7.35-7.45); ARTERIAL BLOOD GAS PO2 84 mm/Hg (80-100); ARTERIAL BLOOD GAS TCO2 35.7 mmol/L (22-28)
[2018-03-13] MEDS ORDERED: Metoprolol 1 mg/ml Inj ONE (16:52)
[2018-03-13] MEDS ORDERED: Metoprolol 1 mg/ml Inj IVP STA (16:53)
[2018-03-13] MEDS ORDERED: Magnesium Sulfate 1 gm in D5W 1 GM/100 ML BAG IVPB ONE ×2 (17:00→19:00)
--- NOTE | 2018-03-13 17:32 | PCM.RRT ---
<Kyung Mg - Last Filed: 03/13/18 17:35> FISH RECEIVER Nurse Assessment - Situation Location: [facility] Room Number: 667/2 FISH RECEIVER Reason for Call: Tachycardia, Hypertension, Respiratory Distress, O2 Saturation below 90% FISH RECEIVER Called By: RN - IV IV Inserted during FISH RECEIVER?: No - Respiratory Oxygen Delivery Method: Nasal Cannula Received Nebulizer Treatments: Yes (x3) Was the Patient Ventilated with Bag/Mask 100% O2?: No Secretions Suctioned?: No Was the Patient Intubated?: No Was the Patient Placed on a Ventilator?: No - Medication Medications Administered During FISH RECEIVER: 1614: Solumedrol IV 125mg. 1624: Nitro-Bid - Diagnostic Test Ordered EKG: No Chest X-Ray: No CT Scan: No - Stat Labs Ordered FISH RECEIVER Stat Labs Ordered: ABG CPR started during FISH RECEIVER?: No - Vital Signs Vital Signs: Rapid Response Vital Sign Blood Pressure 201/81 Pulse Rate 133 Respiratory Rate 33 Temperature 98.1 F Oxygen Saturation 89 - Time FISH RECEIVER Ended Time FISH RECEIVER Ended: 16:30 - Vital Signs at end of FISH RECEIVER Vital Signs at end of FISH RECEIVER: Rapid Response End Vital Sign Blood Pressure 183/80 Pulse Rate 129 Respiratory Rate 30 Temperature 98.1 F O2 Sat by Pulse Oximetry 92 - Recommendations FISH RECEIVER Level of Care Recommendations: Transfer to Telemetry I.Reason for FISH RECEIVER - A) Acute Change in Patient: (Select all that apply): Staff member or family is worried about patient Subjective: FISH RECEIVER called for elevated BP and respiratory distress FISH RECEIVER Called: 4:10 pm FISH RECEIVER Arrival time: 4:11pm Initial FISH RECEIVER Vitals: BP 191/81 HR 130 SPO2 92% (non-rebreather 50%) FISH RECEIVER called for increased BP and respiratory distress for a 77-year-old male with PMH of COPD (on 2L O2 at home) admitted for frequent falls. Patient was saturating 92% on non-rebreather (50%) s/p 1 DuoNeb at arrival of FISH RECEIVER with BP of 191/81 and HR 130. Patient was awake throughout FISH RECEIVER in obvious respiratory distress with supra-clavicular and intracoastal retractions. Two more DuoNeb treatments, Solumedrol 125 mg stat, nitropaste placed and 1gm magnesium given. Patint SPO2 improved to 96% however he remained in respiratory distress. Patient transferred to telemetry for constant monitoring and was placed on BiPAP (12/02/100%/14). ABG: pH 7.36, pCO2 60, pO2 84. Pulmonary consulted verbally (Dr. Man) and requested PE protocol. CXR on admission (2 days prior) showed emphysematous changes. Son present bedside throughout FISH RECEIVER and stated patient is DNR/DNI, Dr Marin spoke with son personally and patient's via telephone for confirmation. Exam: Constitutional - respiratory distress, sitting up in bed, anxious appearing Resp: supra-clavicular and intra-coastal retractions, bilateral wheezing, decreased breath sounds CV: tachycardic Extremities: non-tender lower extremities Orders: - DuoNeb x2 (3 total) - Solumedrol 125 mg - Solumedrol 60 Q12H - 1gm Magnesium - Nitropaste x1 - Transfer to telemetry - BiPAP: 12/02/45%/14 Final FISH RECEIVER Vitals: BP 174/76 HR 135 SPO2 98% (BiPAP) FISH RECEIVER Team: Dr Marin, Dr Concepcion, Dr Mitchell, Dr Galindo, Dr Mg - Constitutional Appears: In Acute Distress - Head Head Exam: NORMAL INSPECTION - Respiratory Exam Respiratory Exam: Wheezes, Respiratory Distress - Cardiovascular Exam Cardiovascular Exam: Tachycardia - Neurological Exam Neurological Exam: Awake - Extremities Exam Extremities Exam: absent: Tenderness Plan - Assessment of Findings&Treatment Plan Respiratory distress / COPD Exacerbation - Constant monitoring on telemetry - DuoNebs Q4H - Solumedrol 60 Q12H - Nitropaste - BiPAP: 12/02/45%/14 - DNR/DNI <Shannon Marin - Last Filed: 03/13/18 17:51> FISH RECEIVER Nurse Assessment - Vital Signs Vital Signs: Rapid Response Vital Sign Blood Pressure 201/81 Pulse Rate 127 Respiratory Rate 33 Temperature 98.1 F Oxygen Saturation 89 - Vital Signs at end of FISH RECEIVER Vital Signs at end of FISH RECEIVER: Rapid Response End Vital Sign Blood Pressure 183/80 Pulse Rate 129 Respiratory Rate 30 Temperature 98.1 F O2 Sat by Pulse Oximetry 96 Attending/Attestation - Attestation I have personally seen and examined this patient.: Yes I have fully participated in the care of the patient.: Yes I have reviewed all pertinent clinical information, including history, physical exam and plan: Yes Notes (Text): Acute Hypercapneic Respiratory Failure COPD exacerbation - Pt was SOB, Tachypneic, to 45, tachycardic to 135, BP elevated to 200 systolic, in resp distress, wheezing , + use of accesory muscles however awake, oriented and followed simple commands -Pt was started on Duoneb tx x 3 - he was then placed on Bipap , transferred to Tele - stat Solumedrol 125 mg IV then RTC 60 mg q 8 - RTC Duoneb tx -ABG, EKG - Pulm consult - Dr Man , discussed case- rec CTA Pulm
--- NOTE | 2018-03-13 19:09 | CARD ---
APPROVED REPORT Date of service: 03/13/2018 EXAM: Two-dimensional and M-mode echocardiogram with Doppler and color Doppler. Other Information Quality : AverageRhythm : NSR Technically limited study due to body habitus.Poor apical windows INDICATION Syncope 2D DIMENSIONS IVSd0.76 (0.7-1.1cm)LVDd3.84 (3.9-5.9cm) PWd1.09 (0.7-1.1cm)IVSs0.91 (0.8-1.2cm) LVDs4.68 (2.5-4.0cm)FS (%) 21.9 % PWs1.02 (0.8-1.2cm) M-Mode DIMENSIONS Left Atrium (MM)3.50 (2.5-4.0cm)Aortic Root3.29 (2.2-3.7cm) Aortic Cusp Exc.1.50 (1.5-2.0cm) Mitral Valve E/A ratio0.0 TDI E/Lateral E'0.0E/Medial E'0.0 LEFT VENTRICLE The left ventricle is normal size. There is normal left ventricular wall thickness. The left ventricular systolic function is normal. The estimated ejection fraction is 55-60% No regional wall motion abnormalities noted.. The left ventricular diastolic function is normal. No left ventricle thrombus noted on this study. There is no ventricular septal defect visualized. There is no left ventricular aneurysm. There is no mass noted in the left ventricle. RIGHT VENTRICLE The right ventricle is normal size. There is normal right ventricular wall thickness. The right ventricular systolic function is normal. ATRIA The left atrium size is normal. The right atrium size is normal. The interatrial septum is intact with no evidence for an atrial septal defect. AORTIC VALVE The aortic valve is mildly sclerotic. No aortic regurgitation is present. There is no aortic valvular stenosis. There is no aortic valvular vegetation. MITRAL VALVE The mitral valve is normal in structure. Mitral annular calcification is mild. There is no evidence of mitral valve prolapse. There is no mitral valve stenosis. There is no mitral valve regurgitation noted. TRICUSPID VALVE The tricuspid valve is normal in structure. There is trace tricuspid regurgitation. There is no tricuspid valve prolapse or vegetation. There is no tricuspid valve stenosis. PULMONIC VALVE The pulmonary valve is normal in structure. There is no pulmonic valvular regurgitation. There is no pulmonic valvular stenosis. GREAT VESSELS The aortic root is normal in size. The ascending aorta is normal in size. The pulmonary artery is normal. The IVC is normal in size and collapses >50% with inspiration. PERICARDIAL EFFUSION There is no pericardial effusion. There is no pleural effusion. <Conclusion> Normal LVC size and systolic function. EF 55-60% Mildly sclerotic AoV Mildly Calcified MV annulus Trace TR
[2018-03-13] MEDS ORDERED: methylPREDNISolone 60 MG in Sodium Chloride 0.9% 50 ML IVPB SCH (21:00)
[2018-03-13 21:24] LABS: HEPATITIS B SURFACE AG Negative (NEGATIVE)
[2018-03-13 21:29] LABS: HEPATITIS A IGM NEGATIVE (NEGATIVE); HEPATITIS B CORE AB NEGATIVE (NEGATIVE)
[2018-03-13 21:41] LABS: HEPATITIS C ANTIBODY NEGATIVE (NEGATIVE)
[2018-03-13] MEDS ORDERED: Iodixanol 320 MG/ML 100 ML BOTTLE IV ONE (21:43)
[2018-03-13] MEDS ORDERED: Sodium Chloride 0.9% 50 ML IV ONE (21:44)
[2018-03-13 21:48] LABS: ABG ALLEN TEST YES; ARTERIAL BLOOD GAS HCO3 30.4 mmol/L (21-28); ARTERIAL BLOOD GAS HEMOGLOBIN 11.5 g/dL (11.7-17.4); ARTERIAL BLOOD GAS O2 CAPACITY 15.8 mL/dL (16-24); ARTERIAL BLOOD GAS O2 CONTENT 15.8 ML/dL (15-23); ARTERIAL BLOOD GAS O2 SAT 99.7 % (95-98); ARTERIAL BLOOD GAS PCO2 57 mm/Hg (35-45); ARTERIAL BLOOD GAS PH 7.38 (7.35-7.45); ARTERIAL BLOOD GAS PO2 149 mm/Hg (80-100); ARTERIAL BLOOD GAS TCO2 35.4 mmol/L (22-28)
[2018-03-14] MEDS: Albuterol-Ipratrop 3 mg / 0.5 (3 ml) UD INH SCH ×4 (03:50→15:53)
[2018-03-14] MEDS: Enoxaparin 40 mg Syringe SC SCH (09:45)
--- NOTE | 2018-03-14 10:56 | CT ---
Date of service: 03/13/2018 PROCEDURE: CT Chest with contrast (Pulmonary Angiogram) HISTORY: Acute respiratory distress, hx COPD COMPARISON: Prior study available for comparison. TECHNIQUE: Axial computed tomography images were obtained of the chest in the pulmonary arterial phase of enhancement. Coronal and sagittal reformatted images were created and reviewed. Intravenous contrast dose: 90 cc Visipaque 320 contrast material Radiation dose: Total exam DLP = 314.75 mGy-cm. This CT exam was performed using one or more of the following dose reduction techniques: Automated exposure control, adjustment of the mA and/or kV according to patient size, and/or use of iterative reconstruction technique. FINDINGS: PULMONARY ARTERIES: The visualized pulmonary trunk, right and left main, lobar, segmental and proximal subsegmental branches of the pulmonary arteries are well opacified with no definitive filling defects seen to suggest acute central pulmonary embolus. Pulmonary trunk measures approximately 2.6 cm., AORTA: No acute findings. No thoracic aortic aneurysm. Ascending thoracic aorta measures approximately 3.3 cm and descending thoracic aorta measures approximately 2.5 cm. Mild aortic atherosclerotic calcification or mural plaque present. LUNGS: Significant centrilobular, panlobular and bullous emphysematous changes upper lobe predominance right greater than left. Additionally, there are scarring and fibrotic changes predominately located in both lung bases left greater than right. PLEURAL SPACES: Small bilateral effusions, right larger than left. No effusion or pneumothorax. HEART: Heart size within range of normal. No significant pericardial effusion.. No significant pericardial effusion. Significant mediastinal or hilar adenopathy. Trachea midline and patent with no large central endoluminal lesions. Air is seen intermittently throughout the esophagus. Tiny the a hiatal hernia felt to be present. LYMPH NODES: No significant mediastinal or hilar adenopathy. BONES, CHEST WALL: Mild multilevel degenerative spondylosis of the thoracic spine as well as upper lumbar spine. There is also a mild levoscoliosis of the midthoracic spine possibly compensatory for a dextroscoliosis centered in the upper lumbar region. OTHER FINDINGS: Cholecystectomy.. IMPRESSION: No evidence of acute central pulmonary embolus. Significant centrilobular, panlobular and bullous emphysematous changes upper lobe predominance right greater than left. There also areas of scarring/fibrosis predominately within both lung bases left greater than right... Small bilateral effusions.
--- NOTE | 2018-03-14 11:21 | CP.PCM.CON ---
Past Patient History - Past Medical History & Family History Past Medical History?: Yes - Past Social History Smoking Status: Former Smoker Chewing Tobacco Use: No Cigar Use: No Alcohol: None Drugs: Denies Home Situation {Lives}: With Family - CARDIAC Hx Heart Attack: Yes (1999/PTCA with stent) Hx Hypercholesterolemia: Yes Hx Hypertension: Yes - PULMONARY Hx Chronic Obstructive Pulmonary Disease (COPD): Yes Hx Emphysema: Yes - NEUROLOGICAL Hx Dementia: Yes - HEENT Hx HEENT Problems: No - RENAL Hx Chronic Kidney Disease: No - ENDOCRINE/METABOLIC Hx Endocrine Disorders: No - HEMATOLOGICAL/ONCOLOGICAL Hx Blood Disorders: No Hx Human Immunodeficiency Virus (HIV): No - INTEGUMENTARY Hx Dermatological Problems: No - MUSCULOSKELETAL/RHEUMATOLOGICAL Hx Arthritis: Yes Hx Falls: Yes (recurrent falls) - GASTROINTESTINAL Hx Gastrointestinal Disorders: No - GENITOURINARY/GYNECOLOGICAL Hx Prostate Problems: Yes - PSYCHIATRIC Hx Psychophysiologic Disorder: No Hx Substance Use: No - SURGICAL HISTORY Hx Coronary Stent: Yes (1999) - ANESTHESIA Hx Anesthesia: Yes Hx Anesthesia Reactions: No Meds Home Medications: Home Medication List Medication Instructions Recorded Confirmed Type Albuterol/Ipratropium [Duoneb 3 3 ml INH RTID PRN neb 03/13/18 Rx mg/0.5 mg (3 ml) UD] Enoxaparin [Lovenox] 40 mg SC DAILY syr 03/13/18 Rx Allergies/Adverse Reactions: Allergies Allergy/AdvReac Type Severity Reaction Status Date / Time No Known Allergies Allergy Verified 03/11/18 16:22 - Medications Medications: Current Medications Albuterol/Ipratropium (Duoneb 3 Mg/0.5 Mg (3 Ml) Ud) 3 ml INH RQ4 [facility] Last Admin: 03/14/18 08:08 Dose: 3 ml Amlodipine Besylate (Norvasc) 5 mg PO DAILY NORBERTO Last Admin: 03/14/18 09:49 Dose: 5 mg Enoxaparin Sodium (Lovenox) 40 mg SC DAILY [facility]; Protocol Last Admin: 03/14/18 09:45 Dose: 40 mg Methylprednisolone (Solu-Medrol) 60 mg IV Q8 NORBERTO Last Admin: 03/14/18 09:45 Dose: 60 mg Results - Vital Signs Recent Vital Signs: Last Vital Signs Temp 97.5 F L 03/14/18 07:38 Pulse 62 03/14/18 09:49 Resp 16 03/14/18 08:05 BP 115/65 03/14/18 09:49 Pulse Ox 90 L 03/14/18 07:38 - Labs Result Diagrams: 03/13/18 06:00 03/13/18 06:00 Labs: Laboratory Results - last 24 hr 03/12/18 03/13/18 03/13/18 19:37 16:09 16:21 pCO2 60 H pO2 84 HCO3 30.0 H ABG pH 7.36 ABG Total CO2 35.7 H ABG O2 Saturation 98.5 H ABG O2 Content 17.6 ABG Base Excess 6.6 H ABG Hemoglobin 13.2 ABG Carboxyhemoglobin 3.0 H POC ABG HHb (Measured) 1.4 ABG Methemoglobin 1.1 ABG O2 Capacity 17.9 Stone Test Yes A-a O2 Difference 198.0 Hgb O2 Saturation 94.5 L Liter Flow Vent Mode FiO2 50.0 POC Glucose (mg/dL) 128 H Hepatitis A IgM Ab Negative Hep Bs Antigen Negative Hep B Core IgM Ab Negative Hepatitis C Antibody Negative 03/13/18 21:41 pCO2 57 H pO2 149 H HCO3 30.4 H ABG pH 7.38 ABG Total CO2 35.4 H ABG O2 Saturation 99.7 H ABG O2 Content 15.8 ABG Base Excess 7.1 H ABG Hemoglobin 11.5 L ABG Carboxyhemoglobin 2.2 H POC ABG HHb (Measured) 0.3 ABG Methemoglobin 1.6 ABG O2 Capacity 15.8 L Stone Test Yes A-a O2 Difference 136.0 Hgb O2 Saturation 95.9 Liter Flow 40 Vent Mode High flow lpm FiO2 50.0 POC Glucose (mg/dL) Hepatitis A IgM Ab Hep Bs Antigen Hep B Core IgM Ab Hepatitis C Antibody Assessment & Plan (1) COPD exacerbation Status: Acute (2) Stage 4 very severe COPD by GOLD classification Status: Chronic Priority: High (3) Chronic respiratory failure with hypoxia and hypercapnia Status: Chronic Priority: High - Date & Time Date: 03/14/18 Time: :
--- NOTE | 2018-03-14 12:45 | CP.PCM.DIS ---
Provider - Provider Date of Admission: 03/11/18 19:37 Attending physician: Symone Andre MD Consults: 03/12/18 00:40 Nursing Referral for Palliative Care Routine Comment: Consulting Provider: Etta Small Physician Instructions: Reason For Exam: screen and eval 03/12/18 04:04 Case Management Referral Routine Comment: Physician Instructions: Reason For Exam: Reason for Referral: Discharge Planning Nursing Referral for Wound Care Routine Comment: Physician Instructions: Reason For Exam: sacral redness 03/13/18 16:32 Pulmonology Consult Routine Comment: moderate respiratory distress , COPD exacerbation Consulting Provider: Federico Man Consulting Physician: Federico Man Reason for Consult: moderate respiratory distress , COPD exacerbation Time Spent in preparation of Discharge (in minutes): 30 Hospital Course - Lab Results Lab Results: Most Recent Lab Values WBC 7.3 K/uL (4.8-10.8) 03/13/18 06:00 RBC 3.46 Mil/uL (4.40-5.90) L 03/13/18 06:00 Hgb 11.6 g/dL (12.0-18.0) L 03/13/18 06:00 Hct 34.2 % (35.0-51.0) L 03/13/18 06:00 MCV 98.9 fl (80.0-94.0) H 03/13/18 06:00 MCH 33.5 pg (27.0-31.0) H 03/13/18 06:00 MCHC 33.9 g/dL (33.0-37.0) 03/13/18 06:00 RDW 14.8 % (11.5-14.5) H 03/13/18 06:00 Plt Count 225 K/uL (130-400) 03/13/18 06:00 MPV 8.8 fl (7.2-11.7) 03/12/18 05:30 Neut % (Auto) 83.9 % (50.0-75.0) H 03/12/18 05:30 Lymph % (Auto) 6.6 % (20.0-40.0) L 03/12/18 05:30 Camp % (Auto) 8.7 % (0.0-10.0) 03/12/18 05:30 Eos % (Auto) 0.5 % (0.0-4.0) 03/12/18 05:30 Baso % (Auto) 0.3 % (0.0-2.0) 03/12/18 05:30 Neut # (Auto) 7.4 K/uL (1.8-7.0) H 03/12/18 05:30 Lymph # (Auto) 0.6 K/uL (1.0-4.3) L 03/12/18 05:30 Camp # (Auto) 0.8 K/uL (0.0-0.8) 03/12/18 05:30 Eos # (Auto) 0.0 K/uL (0.0-0.7) 03/12/18 05:30 Baso # (Auto) 0.0 K/uL (0.0-0.2) 03/12/18 05:30 Neutrophils % (Manual) 83 % (42-75) H 03/11/18 17:30 Lymphocytes % (Manual) 10 % (20-50) L 03/11/18 17:30 Monocytes % (Manual) 7 % (0-10) 03/11/18 17:30 Platelet Estimate Normal (NORMAL) 03/11/18 17:30 Large Platelets Present 03/11/18 17:30 Anisocytosis (manual) Slight 03/11/18 17:30 Ovalocytes Moderate 03/11/18 17:30 pCO2 57 mm/Hg (35-45) H 03/13/18 21:41 pO2 149 mm/Hg (80-100) H 03/13/18 21:41 HCO3 30.4 mmol/L (21-28) H 03/13/18 21:41 ABG pH 7.38 (7.35-7.45) 03/13/18 21:41 ABG Total CO2 35.4 mmol/L (22-28) H 03/13/18 21:41 ABG O2 Saturation 99.7 % (95-98) H 03/13/18 21:41 ABG O2 Content 15.8 ML/dL (15-23) 03/13/18 21:41 ABG Base Excess 7.1 mmol/L (-2.0-3.0) H 03/13/18 21:41 ABG Hemoglobin 11.5 g/dL (11.7-17.4) L 03/13/18 21:41 ABG Carboxyhemoglobin 2.2 % (0.5-1.5) H 03/13/18 21:41 POC ABG HHb (Measured) 0.3 % (0.0-5.0) 03/13/18 21:41 ABG Methemoglobin 1.6 % (0.0-3.0) 03/13/18 21:41 ABG O2 Capacity 15.8 mL/dL (16-24) L 03/13/18 21:41 Stone Test Yes 03/13/18 21:41 A-a O2 Difference 136.0 mm/Hg 03/13/18 21:41 Hgb O2 Saturation 95.9 % (95.0-98.0) 03/13/18 21:41 Liter Flow 40 03/13/18 21:41 Vent Mode High flow lpm 03/13/18 21:41 FiO2 50.0 % 03/13/18 21:41 Sodium 137 mmol/l (132-148) 03/13/18 06:00 Potassium 4.0 MMOL/L (3.6-5.0) 03/13/18 06:00 Chloride 99 mmol/L (98-107) 03/13/18 06:00 Carbon Dioxide 33 mmol/L (22-30) H 03/13/18 06:00 Anion Gap 9 (10-20) L 03/13/18 06:00 BUN 20 mg/dl (9-20) 03/13/18 06:00 Creatinine 0.7 mg/dl (0.8-1.5) L 03/13/18 06:00 Est GFR ( Amer) > 60 03/13/18 06:00 Est GFR (Non-Af Amer) > 60 03/13/18 06:00 POC Glucose (mg/dL) 128 mg/dL (65-110) H 03/13/18 16:09 Random Glucose 120 mg/dL (75-110) H 03/13/18 06:00 Calcium 8.8 mg/dL (8.4-10.2) 03/13/18 06:00 Total Bilirubin 0.5 mg/dl (0.2-1.3) 03/13/18 06:00 AST 49 U/L (17-59) 03/13/18 06:00 ALT 41 U/L (21-72) 03/13/18 06:00 Alkaline Phosphatase 70 U/L (38-126) 03/13/18 06:00 Total Creatine Kinase 270 U/L (55-170) H 03/11/18 18:50 Troponin I 0.0460 ng/mL (0.00-0.120) 03/11/18 17:30 Total Protein 6.0 G/DL (6.3-8.2) L 03/13/18 06:00 Albumin 3.1 g/dL (3.5-5.0) L 03/13/18 06:00 Globulin 2.9 gm/dL (2.2-3.9) 03/13/18 06:00 Albumin/Globulin Ratio 1.1 (1.0-2.1) 03/13/18 06:00 Urine Color Yellow (YELLOW) 03/11/18 08:30 Urine Clarity Slighty-cloudy (Clear) 03/11/18 08:30 Urine pH 5.0 (5.0-8.0) 03/11/18 08:30 Ur Specific [place] 1.020 (1.003-1.030) 03/11/18 08:30 Urine Protein 30 mg/dL (NEGATIVE) 03/11/18 08:30 Urine Glucose (UA) Neg mg/dL (NEGATIVE) 03/11/18 08:30 Urine Ketones Trace mg/dL (NEGATIVE) 03/11/18 08:30 Urine Blood Moderate (NEGATIVE) 03/11/18 08:30 Urine Nitrate Negative (NEGATIVE) 03/11/18 08:30 Urine Bilirubin Negative (NEGATIVE) 03/11/18 08:30 Urine Urobilinogen 0.2-1.0 mg/dL (0.2-1.0) 03/11/18 08:30 Ur Leukocyte Esterase Neg Erik/uL (Negative) 03/11/18 08:30 Urine RBC (Auto) 15 /hpf (0-3) H 03/11/18 08:30 Urine Microscopic WBC 2 /hpf (0-5) 03/11/18 08:30 Ur Squamous Epith Cells < 1 /hpf (0-5) 03/11/18 08:30 Amorphous Sediment Rare /ul (<OCC) H 03/11/18 08:30 Hyaline Casts 0-2 /hpf (0-2) 01/12/19 08:30 Hepatitis A IgM Ab Negative (NEGATIVE) 03/12/18 19:37 Hep Bs Antigen Negative (NEGATIVE) 03/12/18 19:37 Hep B Core IgM Ab Negative (NEGATIVE) 03/12/18 19:37 Hepatitis C Antibody Negative (NEGATIVE) 03/12/18 19:37 - Hospital Course Hospital Course: 77 y/o M w/ PMH of COPD on home oxygen at 2L [place], history of HTN in the past, baseline dementia admitted to the hospital for generalized weakness, frequent falls, and malaise, decreased PO intake. Patient was on O2, Duoneb and solumedrol. During his hospital stay [employer] was called for the patient as he had an episode of COPD exacerbation with elevated blood pressure. Patient received Duoneb inhalation treatment, placed on Bipap mask and nitroglycerine patch. Patient transferred to telemetry. Patient improved and his blood pressure normalized. Patient to be discharged today from the hospital to [facility]. 77 y/o M w/ PMH of COPD on home oxygen at 2L [place], history of HTN in the past, baseline dementia is brought in to the ER by his family for generalized weakness, frequent falls, and malaise, decreased PO intake. Pt is alert but not answering questions appropriately. Hemodynamically stable; afebrile Plan: Frequent falls, deconditioning - Head CT- no acute pathology; pt does not endorse dizziness - Likely secondary to dementia - hip XR: Osteopenia, degenerative changes of the hip and sacroiliac joints b/l. - PT/OT eval, Reccs appreciated (Gait training, Stair training, Therapeutic exercises, Therapeutic activities, Neuromuscular reeducation, Family and friends education) - C/W Bactroban for abrasions COPD exacerbation, stable now - Acute on Chronic - C/W Duoneb Q6H - C/W O2 at 2L NC - prednisone 10 mg tablets - Protonex 40 mg QD History of HTN - Monitor BP Imaging done in ED: Head CT (03/11/18): IMPRESSION: 1. There is generalized parenchymal atrophy noted as demonstrated by symmetrical dilatation of ventricles and sulci. 2. Chronic periventricular and subcortical microvascular disease is seen. 3. Forehead swelling is seen. 4. 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 5. No acute intracranial pathology. CT Maxillofacial without Intravenous Contrast (03/11/18): IMPRESSION: 1. Forehead swelling is seen. 2. 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 3. No fracture. CT Cervical Spine Without IV contrast (03/11/18): Diffuse advanced hypertrophic and degenerative changes with chronic disc disease at the C3 and C4 C4-C5 C5-C6 and C6-C7 levels. Minimal anterolisthesis at the C2-C3 level. No acute fracture identified. If warranted correlation with MRI examination may be considered. Elbow XR (03/11/18): IMPRESSION: Unremarkable radiographs of the left elbow. Foot XR (03/11/18): IMPRESSION: No acute fracture or dislocation. Degenerative right foot changes. Wrist XR (03/11/18): IMPRESSION: No acute fracture or dislocation. Degenerative changes. Chest XR (03/11/18): IMPRESSION: Classic COPD pattern reiterated without acute interval changes. Left forearm obscures left base somewhat. Hip/Pelvis XR (03/12/18): Diffuse osteopenia and degenerative changes of b/l hip and sacroiliac joints. No acute fractures. Abdominal u/s (03/11/2018): Non visualized gall bladder may be due to prior removal. Non visualized pancreas may be due to body habitus obscuring lesser sac. Lower limit normal size kidneys. Discharge Exam - Head Exam Head Exam: NORMAL INSPECTION - Eye Exam Eye Exam: EOMI, Normal appearance, PERRL Pupil Exam: NORMAL ACCOMODATION, PERRL - ENT Exam ENT Exam: Mucous Membranes Moist - Neck Exam Neck exam: Normal Inspection - Respiratory Exam Respiratory Exam: Clear to PA & Lateral, NORMAL BREATHING PATTERN, UNREMARKABLE - Cardiovascular Exam Cardiovascular Exam: +S1, +S2 - GI/Abdominal Exam GI & Abdominal Exam: Normal Bowel Sounds, Unremarkable - Extremities Exam Additional comments: Multiple abrasions bilaterally, no active bleeding B/L knee ecchymosis with abrasion covered by hard scab on the R side, R Hallux tip ecchymosis. B/L elbow ecchymosis - Neurological Exam Neurological exam: Alert, Oriented x3 - Skin Skin Exam: Dry, Warm Additional comments: B/L Abrasion (as noted above), ecchymosis Discharge Plan - Discharge Medications Prescriptions: Albuterol/Ipratropium [Duoneb 3 mg/0.5 mg (3 ml) UD] 3 ml INH RQ4 #30 neb amLODIPine [Norvasc] 5 mg PO DAILY #30 tab Pantoprazole Sodium [Protonix] 40 mg PO DAILY 30 Days ect Prednisone [[place]] 5 mg PO DAILY #48 tablet.dr - Follow Up Plan Condition: STABLE Disposition: HOME/ ROUTINE Instructions: Preventing Falls in the Older Adult, Weakness (ED) Referrals: Fred Clemons MD [Family Provider] -
[2018-03-14 16:20] VITALS: BP 111/55; PULSE 96; RESP 18; TEMP 97.4; O2SAT 97
--- NOTE | 2018-03-14 18:52 | CARD ---
APPROVED REPORT Date of service: 03/13/2018 EKG Measurement Heart [id number] <Conclusion> Normal sinus rhythm Possible Inferior infarct, age undetermined Abnormal ECG
== END 2018-03-14 18:57 | DRG 641 ==
LOC: H.ER 16:16 → H.ERHOLD 19:37 → H.MEDSURG1 21:47 → H.TEL 03-13 16:29
PROVIDERS: ADMIT Internal Medicine; ATTEND Internal Medicine
PROC: 3E0F73Z Introduction of Anti-inflammatory into Respiratory Tract, Via Natural or Artificial Opening (ICD-10-PCS; principal; 2018-03-11)
PROC: 5A09357 Assistance with Respiratory Ventilation, Less than 24 Consecutive Hours, Continuous Positive Airway Pressure (ICD-10-PCS; 2018-03-13)
PROC: 3E02340 Introduction of Influenza Vaccine into Muscle, Percutaneous Approach (ICD-10-PCS; 2018-03-13)
PROC: 3E0234Z Introduction of Serum, Toxoid and Vaccine into Muscle, Percutaneous Approach (ICD-10-PCS; 2018-03-13)
DX: E87.5 Hyperkalemia (principal); J44.1 Chronic obstructive pulmonary disease with (acute) exacerbation; R64 Cachexia; J96.12 Chronic respiratory failure with hypercapnia; J96.11 Chronic respiratory failure with hypoxia; E86.0 Dehydration; R62.7 Adult failure to thrive; J98.4 Other disorders of lung; F02.80 Dementia in other diseases classified elsewhere, unspecified severity, without behavioral disturbance, psychotic disturbance, mood disturbance, and anxiety; G30.9 Alzheimer's disease, unspecified; I25.10 Atherosclerotic heart disease of native coronary artery without angina pectoris; D72.829 Elevated white blood cell count, unspecified; J32.0 Chronic maxillary sinusitis; J32.2 Chronic ethmoidal sinusitis; E78.5 Hyperlipidemia, unspecified; I10 Essential (primary) hypertension; E78.00 Pure hypercholesterolemia, unspecified; M85.80 Other specified disorders of bone density and structure, unspecified site; R26.89 Other abnormalities of gait and mobility; R29.6 Repeated falls; Z68.21 Body mass index [BMI] 21.0-21.9, adult; Z99.81 Dependence on supplemental oxygen; I25.2 Old myocardial infarction; Z23 Encounter for immunization; Z91.81 History of falling; Z95.5 Presence of coronary angioplasty implant and graft; Z87.891 Personal history of nicotine dependence